=== PATIENT | female | born 1955 | race Caucasian/White ===

== ENCOUNTER 2024-09-09 07:44 | Outpatient (REF) | payer MEDICARE, SELFPAY ==
[2024-09-09 09:25] LABS: MANUAL DIFF FLAG NO
[2024-09-09 09:33] LABS: Basophils Percent Auto 0.8 % (0-2); Eosinophils Absolute Auto 0.1 X10*3/uL (0.0-0.4); Eosinophils Percent Auto 1.5 % (0-4); Hematocrit 44.8 % (37.0-47.0); Hemoglobin 15.2 g/dl (12.0-16.0); Imm Gran Abs Auto 0.01 X10*3/uL (0.00-0.03); Imm Gran Pct Auto 0.2 % (0.0-0.4); Lymphocytes Absolute Auto 1.8 X10*3/uL (1.2-4.9); Lymphocytes Percent Auto 34.6 % (20-40); Mean Corpuscular HGB Conc 33.9 g/dl (31.0-35.0); Mean Corpuscular Volume 91.2 fL (80.0-98.0); Mean Platelet Volume 10.5 fL (9.4-12.3); Monocytes Absolute Auto 0.3 X10*3/uL (0.1-1.2); Neutrophils Absolute Auto 2.9 x10*3/uL (2.0-8.3); Neutrophils Percent Auto 56.9 % (45-73); Platelet Count 199 X10*3/uL (160-400); Red Blood Count 4.91 X10*6/uL (4.20-5.50); Red Cell Distribution Width 12.8 % (11.0-16.0); White Blood Count 5.2 X10*3/uL (4.8-10.8)
[2024-09-09 09:38] LABS: Appearance Urine Clear; Color Urine Yellow; Glucose Urine UA Negative (Negative); Leukocyte Esterase Urine Negative (Negative); Nitrite Urine Negative (Negative); Specific Gravity - Urine 1.025 (1.005-1.025); Urine Blood Negative (Negative); Urine Ketones Negative (Negative); Urine Protein Negative (Neg-Trace)
[2024-09-09 09:42] LABS: Estimated Average Glucose 108 mg/dL; Hemoglobin A1C 141.0899 umol/L; Hemoglobin A1c % 5.4 % (<6.0); Total Hemoglobin (HGBA1C) 3965.1775 umol/L
[2024-09-09 10:07] LABS: Alanine Aminotransferase 16 U/L (0-31); Albumin Level 4.5 g/dL (3.5-5.0); Alkaline Phosphatase 120 U/L (39-117); Anion Gap 11 (12-20); Aspartate Amino Transferase 23 U/L (5-31); Bilirubin Total 0.5 mg/dL (0.0-1.0); Blood Urea Nitrogen 19 mg/dL (9-16); Calcium 9.9 mg/dL (8.4-10.2); Carbon Dioxide 29 mmol/L (22-29); Chloride 106 mmol/L (96-108); Cholesterol 179 mg/dL (<200); Estimated Glomerular Filt Rate > 60; Glucose Random 99 mg/dL (60-115); HDL Cholesterol 57 mg/dL (>40); LDL Cholesterol Calculated 109 mg/dL (<100); Potassium 3.7 mmol/L (3.3-5.1); Sodium 142 mmol/L (135-145); Triglycerides 66 mg/dL (<150)
[2024-09-09 10:24] LABS: TSH reflex Free T4 1.35 uIU/mL (0.32-4.0)
[2024-09-09 10:40] LABS: Folate 11.3 ng/mL (> or = 4.0); Vitamin B12 216 pg/mL (200-900)
[2024-09-14 16:19] LABS: Vitamin D 25-OH, D2 <4 ng/mL; Vitamin D 25-OH, D3 52 ng/mL; Vitamin D 25-OH, Total 52 ng/mL (30-100)
== END 2024-09-09 07:45 | disposition home or self-care (01) ==
LOC: HO.LAB 07:44
DX: R19.7 Diarrhea, unspecified (principal); I10 Essential (primary) hypertension; G40.909 Epilepsy, unspecified, not intractable, without status epilepticus; F41.9 Anxiety disorder, unspecified; R35.89 Other polyuria; Z23 Encounter for immunization; Z79.899 Other long term (current) drug therapy; Z00.00 Encounter for general adult medical examination without abnormal findings
CPT/HCPCS: 36415; 80053; 80061; 81003; 82306; 82607; 82746; 83036; 84443; 85025; 90471; 90656; 96127; 99202

== ENCOUNTER 2024-09-09 07:44 | Outpatient (AMB) | payer MEDICARE, SELFPAY ==
[2024-09-09 08:02] VITALS: BP 122/70; PULSE 60; O2SAT 99; BMI 25.3
--- NOTE | 2024-09-09 08:02 | MHC.PC.OV ---
Vital Signs 09/09/24 08:02 Height 5 ft 1 in Weight 134 lb 0.2 oz BMI 25.3 BP 122/70 Blood Pressure Location Lt brachial Position Sitting Pulse 60 Pulse Source Pulse Oximeter Pulse Oximetry (%) 99 Oxygen Delivery Method Room Air Intake Visit Reasons: Neurology Referral Panel Wirer Required: No Allergies Iodinated Contrast Media Allergy (Mild, Verified 09/09/24 08:21) Shakiness nitrofurantoin [From Macrodantin] Allergy (Mild, Verified 09/09/24 08:21) Nausea and Vomiting sulfa Allergy (Mild, Uncoded 09/09/24 08:21) Hives Medication List - Last Reconciled 09/09/24 by Isabella Collazo PA-C amlodipine 5 mg PO DAILY calcium carbonate-vitamin D3 600 mg-12.5 mcg (500 unit) (Calcium 600 with Vitamin D3) caps PO levetiracetam 500 mg PO BID lisinopril 20 mg PO DAILY Tobacco use date assessed: 09/09/24 Fall risk assessment: No Falls in past year Dental Screening Dental Screen Date: 09/09/24 Did you have a dental visit in the last 12 months?: Yes Did you have a dental problem in the last 6 months where you did not have access to dental care?: No Was dental information given to patient?: No HPI Neurology Referral HPI Details 68-year-old female coming to the office for the 1st time. Patient states she has a long history of neurological issues. She has a history of a brain aneurysm and underwent repair during the surgery patient had TIA with seizure activity. She had increased intracranial pressure after the surgery required a medically induced coma with craniotomy. Since the surgery patient has been having intermittent seizures and has been stabilized on medication for several years. Last week she had a breakthrough seizure and does not currently have a neurologist. She is dealing with increased family stress and anxiety and she believes what caused her most recent seizure. Previously her last seizure was January 2021. She is up-to-date on her colonoscopy 2021, bone density 2022 and mammogram completed earlier this year and was advised to have additional imaging due to dense breast tissue and family history. Previously she was on levothyroxine for hypothyroidism but has not been on this medication for several months. She also mentions she has been having chronic diarrhea primarily in the mornings that began after cholecystectomy 2022. [facility] Medical History (Updated 09/09/24 @ 09:13 by Isabella Collazo PA-C) TIA (transient ischemic attack) Brain aneurysm Surgical History (Updated 09/09/24 @ 08:20 by Isabella Collazo PA-C) S/P cholecystectomy H/O craniotomy S/P LASIK surgery of both eyes Hx of tubal ligation S/P removal of ovarian cyst H/O lithotripsy Family History (Updated 09/09/24 @ 08:28 by Isabella Collazo PA-C) Mother Breast cancer Sister Breast cancer Social History Housing: House Patient Tobacco Use Status: Never used Tobacco service: No Current occupational status: retired Cognitive needs: No Hearing needs: No Vision needs: No Questionnaire PHQ-9 Over the last 2 weeks, how often have you been bothered by any of the following problems? 1. Little interest or pleasure in doing things: not at all 2. Feeling down, depressed, or hopeless: not at all 3. Trouble falling or staying asleep, or sleeping too much: not at all 4. Feeling tired or having little energy: not at all 5. Poor appetite or overeating: not at all 6. Feeling bad about yourself - or that you are a failure or have let yourself or your family down: not at all 7. Trouble concentrating on things, such as reading the newspaper or watching television: not at all 8. Moving or speaking so slowly that other people could have noticed. Or the opposite - being so fidgety or restless that you have been moving around a lot more than usual: not at all 9. Thoughts that you would be better off or of hurting yourself in some way: not at all Total score: 0 Depression Screening Interpretation: Negative Depression Screening Done: Yes 34613 - PHQ-9 Billing: Yes Source: Developed by Drs. Jose Lechuga, Alicia Moncada, Jorge Crawford and colleagues, with an educational elda from [employer]. Thrive Questionnaire Date Thrive assessed: 09/09/24 I am a: Patient What is your living situation today?: I have a steady place to live Within the past 12 months, did the food you bought not last and you didn't have the money to get more?: Never true Within the past 12 months, did you worry whether your food would run out before you got money to buy more?: Never true Do you have trouble paying for medicines?: No Do you have trouble getting transportation to medical appointments?: No Do you have trouble paying your heating and electricity bill?: No Do you have trouble taking care of your child, family member or friend?: No Do you have trouble with day-to-day activities such as bathing, preparing meals, shopping, managing finances, etc.?: No Are you currently unemployed and looking for a job?: No Are you interested in more education?: No Please select the resources that you would like help with: None Currently or been in a relationship where the following occur: No concerns reported THRIVE Score: 0 AUDIT C Alcohol Use Questionnaire (AUDIT-C) 1. How often do you have a drink containing alcohol?: Never 2. How many drinks containing alcohol do you have on a typical day when you are drinking?: 1 or 2 (0) 3. How often do you have six or more drinks on one occasion?: Never Total Score: 0 ISRAEL-7 AMB Questionnaire ISRAEL-7 Date ISRAEL - 7 assessed: 09/09/24 Feeling nervous, anxious, or on edge: 0 = Not at all Not being able to stop or control worryin = Several days Worrying too much about different things: 1 = Several days Trouble relaxin = Not at all Being so restless that it is hard to sit still: 0 = Not at all Becoming easily annoyed or irritable: 0 = Not at all Feeling afraid as if something awful might happen: 0 = Not at all Total ISRAEL-7 score (0-4 normal; 5-9 mild; 10-14 moderate; 15-21 severe): 2 Source: Developed by Drs. Jose Lechuga, Alicia Moncada, Jorge Crawford and colleagues, with an educational elda from [employer]. ISRAEL-7 Assessment Billing ISRAEL-7 Assessment Tool: ISRAEL-7 Assessment 46023 Review of Systems Const Denies body aches, Denies fatigue, Denies fever(s), Denies frequent falls, Denies headache(s) and Denies weakness Eyes Reports no additional complaints and Denies change in vision ENT Details: neck tenderness Denies dysphagia, Denies dizziness, Denies facial pain, Denies headache(s), Denies nasal congestion and Denies odynophagia Card Denies chest pain, Denies syncope, Denies irregular heart rhythm, Denies leg edema, Denies lightheadedness and Denies dyspnea Resp Denies cough and Denies dyspnea GI Denies constipation, Denies dysphagia, Denies dyspepsia, Denies diarrhea, Denies nausea, Denies odynophagia and Denies vomiting Denies urinary frequency, Denies dysuria, Denies urinary hesitancy and Denies urinary urgency Musc Denies back pain and Denies myalgias Skin/Breast Reports system reviewed and no additional complaints, except as documented Neuro Denies dizziness, Denies syncope, Denies frequent falls, Denies headache(s) and Denies weakness Psych Reports no additional complaints Endo Denies fatigue Physical exam (Primary Care) Vital Signs: Last Vital Signs Pulse 60 09/09/24 08:02 BP 122/70 09/09/24 08:02 Pulse Ox 99 09/09/24 08:02 Oxygen Delivery Method Room Air 09/09/24 08:02 BMI result Body Mass Index 25.3 Tobacco/Smoking Status: Tobacco use Status Tobacco use date assessed 09/09/24 09/09/24 08:04 Patient Tobacco Use Status Never used Tobacco 09/09/24 08:13 PHQ-9: PHQ-9 Score PHQ-9: Total score 0 09/09/24 08:45 Depression Screening Interpretation: Negative Thrive Assessment: Date of Thrive Assessment Date Thrive assessed 09/09/24 09/09/24 08:13 Currently or been in a relationship where the following occur: No concerns reported Const General: cooperative, healthy appearing, comfortable and no acute distress Orientation/consciousness: patient oriented x3 HENMT Head: Yes normocephalic Ears: hearing grossly normal bilaterally General nose exam: Normal external nose present Eyes General: appearance normal, both eyes and all related structures Conjunctivae: conjunctivae normal Neck Neck: Yes full ROM and Yes no lymphadenopathy Resp Effort & Inspection: normal respiratory effort Auscultation: clear to auscultation bilaterally, no crackles, no rales, no rhonchi and no wheezes Cardio Rate: regular rate Rhythm: regular rhythm Skin General skin exam: no rashes or lesions noted Neuro General: patient oriented x3 Gait exam (Neuro): Normal gait present Extrem General: Yes normal to inspection, Yes full ROM and No edema Psych Affect: normal affect Attitude: cooperative Insight: Good insight present (Psych) Judgement: Good judgement present (Psych) Office Procedures Flu Questionnaire Does the patient have a severe egg allergy?: No Does the patient have severe life threatening allergies?: No Does the patient have a fever or illness today?: No Has the patient ever had Guillain-[place] Syndrome?: No Has the patient ever had any past reaction to a flu shot?: No Immunizations Fluarix Triv [id number] (PF) 45 mcg (15 mcg x 3)/0.5 mL IM syringe Performing Provider: Isabella Collazo PA-C [facility] Administered by: LAKEISHA Gomez on 09/09/24 08:45 Dose Route Admin Location Dispensed Lot Number Expiration Date NDC Sed Special Education Teacher 0.5 mL IM Left Deltoid 0.5 mL [id number] 04/25/25 [id number] [employer] VIS Given Date VIS Provided VIS Publication Date 09/09/24 Single Vaccine 21 Eligibility Eligibility Date Funding Source Not [facility] Eligible 09/09/24 Private Coding Level of Care Code New Pt Level 4 (48492) Diagnoses Breast cancer screening Z12.39 Diarrhea R19.7 Hypertension I10 Seizure disorder G40.909 Anxiety F41.9 Additional Codes ISRAEL-7 Assessment Billing - ISRAEL-7 Assessment Tool: ISRAEL-7 Assessment 30275 ([id number]) PHQ-9 - 91245 - PHQ-9 Billing: Yes ([id number]) Assessment & Plan Assessment & Plan (1) Breast cancer screening: Code(s): Z12.39 - Encounter for other screening for malignant neoplasm of breast Category: Medical Plan: Patient had breast cancer screening done with mammogram and was recommended to have additional testing due to dense breast tissue and strong family history of breast cancer. Patient declines MRI at this time and we will order for bilateral ultrasound. (2) Diarrhea: Code(s): R19.7 - Diarrhea, unspecified Category: Medical Plan: Patient has chronic diarrhea status post cholecystectomy advised patient to use cholestyramine powder and discussed how to take this medication. We will follow up in 1 month for re-evaluation. (3) Hypertension: Code(s): I10 - Essential (primary) hypertension Category: Medical Plan: Continue on current blood pressure medication. Avoid salt intake and encourage healthy diet and regular exercise. (4) Seizure disorder: Code(s): G40.909 - Epilepsy, unspecified, not intractable, without status epilepticus Category: Medical Plan: Patient currently on Keppra b.i.d. has been doing well on this medication for several years. Last week states she had a witnessed seizure and did not go to the emergency room at that time but was evaluated by television repair teacher. Referral placed for Neurology due to breakthrough seizure. (5) Anxiety: Code(s): F41.9 - Anxiety disorder, unspecified Category: Medical Plan: Increased anxiety and due to family stress. Declines medication or counseling referral at this time Plan This note was constructed using voice recognition software. While every effort has been made to ensure accuracy and photonics engineering technician, still areas may have been included sometimes these areas may affect the content or meeting of the given symptoms. Total time spent caring for the patient today was 30 minutes. This includes time spent before the visit reviewing the chart, time spent during the visit, and time spent after the visit and documentation. Orders: Orders US breast LT complete Today Z12.39 - Encounter for other screening for malignant neoplasm of breast US breast RT complete Today Z12.39 - Encounter for other screening for malignant neoplasm of breast Comprehensive Met. Panel Today Z00.00 - Encounter for general adult medical examination without abnormal findings TSH reflex Free T4 Today Z00.00 - Encounter for general adult medical examination without abnormal findings Hemoglobin A1c Today Z00.00 - Encounter for general adult medical examination without abnormal findings Vitamin D 25-OH (D2 and D3) Today Z00.00 - Encounter for general adult medical examination without abnormal findings Influenza [id number] Immunization Today Z23 - Encounter for immunization Complete Blood Count Auto Diff Today Z00.00 - Encounter for general adult medical examination without abnormal findings Lipid Panel Today Z00.00 - Encounter for general adult medical examination without abnormal findings Vitamin B12 and Folate Today Z00.00 - Encounter for general adult medical examination without abnormal findings UA CC w/rflx Micro + Cult Today R35.89 - Other polyuria Referrals Neurology Referral G40.909 - Epilepsy, unspecified, not intractable, without status epilepticus Medications: New cholestyramine (with sugar) 4 gram no meds 1 hr before/4-6 hr after dose. 4 grams PO BID 368.76 grams 1RF
== END 2024-09-09 08:55 | disposition home or self-care (01) ==
DX: Z12.39 Encounter for other screening for malignant neoplasm of breast (principal); R19.7 Diarrhea, unspecified; I10 Essential (primary) hypertension; G40.909 Epilepsy, unspecified, not intractable, without status epilepticus; F41.9 Anxiety disorder, unspecified; Z23 Encounter for immunization

== ENCOUNTER 2024-10-13 10:13 | Outpatient (AMB) | payer MEDICARE, SELFPAY ==
--- NOTE | 2024-10-13 10:18 | MHC.PC.OV ---
Vital Signs 10/13/24 10:19 Height 5 ft 1 in Weight 132 lb BMI 24.9 BP 116/70 Blood Pressure Location Lt brachial Position Sitting Pulse 55 Pulse Source Pulse Oximeter Pulse Oximetry (%) 97 Oxygen Delivery Method Room Air Intake Visit Reasons: Annual Exam Intake Note: Patient here for an annual physical exam Telephone Operator Receptionist Required: No Accompanied by: Self / Same As Patient Allergies Iodinated Contrast Media Allergy (Mild, Verified 10/13/24 10:34) Shakiness nitrofurantoin [From Macrodantin] Allergy (Mild, Verified 10/13/24 10:34) Nausea and Vomiting sulfa Allergy (Mild, Uncoded 10/13/24 10:34) Hives Medication List - Last Reconciled 10/13/24 by Isabella Collazo PA-C amlodipine 5 mg PO DAILY calcium carbonate-vitamin D3 600 mg-12.5 mcg (500 unit) (Calcium with Vit D3) caps PO cholestyramine-aspartame 4 gram (Cholestyramine Light) 4 grams PO QIDACHS levetiracetam 500 mg PO BID lisinopril 20 mg PO DAILY Tobacco use date assessed: 09/09/24 Fall risk assessment: No Falls in past year Last assessed Fall Risk: 10/13/24 Dental Screening Dental Screen Date: 09/09/24 HPI Annual Exam HPI Details 68-year-old female with past medical history of seizure disorder, hypertension, anxiety last seen August 2024 coming in for annual exam. Patient has an appointment in November with [facility] to follow up on her seizure disorder. She denies any seizure-like activity, headaches or other concerns. She has been using the cholestyramine daily for her diarrhea and states since using this medication she no longer has diarrhea. She does mentioned that her right shoulder has been tender especially at night while in bed. Her last colonoscopy was done in 2021 advised to follow up in 5 years. Her breast ultrasound is scheduled for next month and her last bone density was completed November 2022. [facility] Medical History TIA (transient ischemic attack) Brain aneurysm Surgical History S/P cholecystectomy H/O craniotomy S/P LASIK surgery of both eyes Hx of tubal ligation S/P removal of ovarian cyst H/O lithotripsy Family History Mother Breast cancer Sister Breast cancer Social History Housing: House Patient Tobacco Use Status: Never used Tobacco e-Cigarette/Vaping Use: Never Used Second Hand Smoke Exposure: No service: No Current occupational status: retired Cognitive needs: No Hearing needs: No Vision needs: No Questionnaire Thrive Questionnaire Date Thrive assessed: 09/09/24 I am a: Patient What is your living situation today?: I have a steady place to live Within the past 12 months, did the food you bought not last and you didn't have the money to get more?: Never true Within the past 12 months, did you worry whether your food would run out before you got money to buy more?: Never true Do you have trouble paying for medicines?: No Do you have trouble getting transportation to medical appointments?: No Do you have trouble paying your heating and electricity bill?: No Do you have trouble taking care of your child, family member or friend?: No Do you have trouble with day-to-day activities such as bathing, preparing meals, shopping, managing finances, etc.?: No Are you currently unemployed and looking for a job?: No Are you interested in more education?: No Please select the resources that you would like help with: None Currently or been in a relationship where the following occur: No concerns reported THRIVE Score: 0 ISRAEL-7 AMB Questionnaire ISRAEL-7 Date ISRAEL - 7 assessed: 09/09/24 Source: Developed by Drs. Jose Lechuga, Alicia Moncada, Jorge Crawford and colleagues, with an educational elda from [employer]. Review of Systems Const Denies body aches, Denies fatigue, Denies fever(s), Denies frequent falls, Denies headache(s) and Denies weakness Eyes Reports no additional complaints and Denies change in vision ENT Denies dysphagia, Denies dizziness, Denies facial pain, Denies headache(s), Denies nasal congestion and Denies odynophagia Card Denies chest pain, Denies syncope, Denies irregular heart rhythm, Denies leg edema, Denies lightheadedness and Denies dyspnea Resp Denies cough and Denies dyspnea GI Denies abdominal pain, Denies constipation, Denies dysphagia, Denies dyspepsia, Denies diarrhea, Denies nausea, Denies odynophagia and Denies vomiting Denies urinary frequency, Denies dysuria, Denies urinary hesitancy and Denies urinary urgency Musc Details: right shoulder pain, neck pain and stiffness Denies back pain and Denies myalgias Skin/Breast Reports system reviewed and no additional complaints, except as documented Neuro Denies dizziness, Denies syncope, Denies frequent falls, Denies headache(s) and Denies weakness Psych Reports no additional complaints Endo Denies fatigue Physical exam (Primary Care) Vital Signs: Last Vital Signs Pulse 55 10/13/24 10:19 BP 116/70 10/13/24 10:19 Pulse Ox 97 10/13/24 10:19 Oxygen Delivery Method Room Air 10/13/24 10:19 BMI result Body Mass Index 24.9 Tobacco/Smoking Status: Tobacco use Status Tobacco use date assessed 09/09/24 10/13/24 10:20 Patient Tobacco Use Status Never used Tobacco 10/13/24 10:20 e-Cigarette/Vaping Use Never Used 10/13/24 10:23 Thrive Assessment: Date of Thrive Assessment Date Thrive assessed 09/09/24 10/13/24 10:20 Currently or been in a relationship where the following occur: No concerns reported Const General: cooperative, healthy appearing, comfortable and no acute distress Orientation/consciousness: patient oriented x3 HENMT Head: Yes normocephalic Ears: hearing grossly normal bilaterally, external ears normal, TM's normal bilaterally and EAC's normal General nose exam: Normal external nose present Face and sinus: Yes normal facial exam and Yes sinuses nontender Mouth: Normal oral and palatal mucosa present and tongue normal Throat: Yes posterior oropharynx normal Eyes General: appearance normal, both eyes and all related structures Conjunctivae: conjunctivae normal Pupils: Equal, round and reactive pupils present EOM: EOMs intact bilaterally and No Nystagmus present Neck Other: Pain to palpation over right trapezius. Limited range of motion of the neck Neck: Yes normal visual inspection and Yes no lymphadenopathy Chest Chest palpation & inspection: normal inspection of the chest Resp Effort & Inspection: normal respiratory effort Auscultation: clear to auscultation bilaterally, no crackles, no rales, no rhonchi, no wheezes and breath sounds present Cardio Rate: regular rate Rhythm: regular rhythm Peripheral pulses: radial pulses present and dorsalis pedis present GI Inspection: Yes normal to inspection and No Abdominal wall edema Palpation (GI): Soft to palpation, not firm and nontender Auscultation: normal bowel sounds Rectal Exam - Female: deferred General: Yes no CVA tenderness Back/Spine/Pelvis Back: no CVA tenderness Skin General skin exam: no rashes or lesions noted Neuro General: patient oriented x3 Cranial nerves: Yes Equal, round and reactive pupils present, Yes Midline tongue present, Yes Ability to bilaterally elevate shoulders present and No Nystagmus present Gait exam (Neuro): Normal gait present Extrem Other: No pain to palpation over right shoulder, full range of motion, strength sensation and pulses intact in bilateral upper extremities. Patient does has very mild tenderness to palpation over right biceps General: Yes normal to inspection, Yes full ROM, No no pedal edema and No edema Psych Speech and movement: Normal speech and movement present Affect: normal affect Insight: Good insight present (Psych) Judgement: Good judgement present (Psych) Immunizations tetanus-diphtheria toxoids-Td 2 Lf unit-2 Lf unit/0.5 mL IM suspension Performing Provider: Isabella Collazo PA-C [place] Administered by: LAKEISHA Mata on 10/13/24 11:05 Dose Route Admin Location Dispensed Lot Number Expiration Date [facility] Facility Specialist 0.5 mL IM Left Deltoid 0.5 mL [id number] 12/06/24 [address]-8 [employer] VIS Given Date VIS Provided VIS Publication Date 10/13/24 Single Vaccine 21 Eligibility Eligibility Date Funding Source Not [facility] Eligible 10/13/24 State funds Coding Level of Care Code Est Pt Level 3 (93154) Est Pt Prev Care >65y(33053) Diagnoses Anxiety F41.9 Breast cancer screening Z12.39 Diarrhea R19.7 Hypertension I10 Seizure disorder G40.909 Annual physical exam Z00.00 Neck pain M54.2 Right shoulder pain M25.511 Assessment & Plan Assessment & Plan (1) Anxiety: Code(s): F41.9 - Anxiety disorder, unspecified Category: Medical Plan: Has a history of anxiety not currently on medication. Declines counseling (2) Breast cancer screening: Code(s): Z12.39 - Encounter for other screening for malignant neoplasm of breast Category: Medical Plan: Ultrasound ordered for breast cancer screening as patient declines mammogram or MRI. (3) Diarrhea: Code(s): R19.7 - Diarrhea, unspecified Category: Medical Plan: Currently using cholestyramine for diarrhea status post cholecystectomy. States since using this medication has no longer had diarrhea. (4) Hypertension: Code(s): I10 - Essential (primary) hypertension Category: Medical Plan: Continue on current blood pressure medication. Avoid salt intake and encourage healthy diet and regular exercise. (5) Seizure disorder: Code(s): G40.909 - Epilepsy, unspecified, not intractable, without status epilepticus Category: Medical Plan: Referral was placed to [facility] at last visit patient currently on Keppra 500 mg b.i.d.. Patient did have breakthrough seizure which she attributes to increased stress. Has neurology visit in November. (6) Annual physical exam: Code(s): Z00.00 - Encounter for general adult medical examination without abnormal findings Category: Medical Plan: Patient is up-to-date on her colonoscopy and Pap smears. She has breast cancer screening scheduled for next month and also referred to bone density today. Tetanus shot up-to-date today and had flu shot at last visit. Blood work is up-to-date we will continue to monitor thyroid testing. (7) Neck pain: Code(s): M54.2 - Cervicalgia Category: Medical Plan: On exam patient having tenderness to palpation over right side of the neck. States she continues to have stiffness despite using gentle stretching. We will refer to physical therapy at this time continue to use Tylenol and ibuprofen as needed. (8) Right shoulder pain: Code(s): M25.511 - Pain in right shoulder Category: Medical Plan: Patient completed right shoulder pain primarily in bed discussed this may be due to the way that she is sleeping as the shoulder pain typically resolves throughout the day. Appears to be muscular in nature. Referral placed to physical therapy. Plan This note was constructed using voice recognition software. While every effort has been made to ensure accuracy and security public safety officer, still areas may have been included sometimes these areas may affect the content or meeting of the given symptoms. Total time spent caring for the patient today was 30 minutes. This includes time spent before the visit reviewing the chart, time spent during the visit, and time spent after the visit and documentation. Orders: Orders PT Evaluation and Treatment Today M25.511 - Pain in right shoulder, M54.2 - Cervicalgia Free T4 (Free Thyroxine) 3 Months Z00.00 - Encounter for general adult medical examination without abnormal findings XR DEXA axial skeleton Today Z78.0 - Asymptomatic menopausal state Td State Immunization Today Z23 - Encounter for immunization TSH reflex Free T4 3 Months Z00.00 - Encounter for general adult medical examination without abnormal findings Referrals Dermatology Referral L65.9 - Nonscarring hair loss, unspecified
[2024-10-13 10:19] VITALS: BP 116/70; PULSE 55; O2SAT 97; BMI 24.9
== END 2024-10-13 11:09 | disposition home or self-care (01) ==
DX: Z00.00 Encounter for general adult medical examination without abnormal findings (principal); M54.2 Cervicalgia; G40.909 Epilepsy, unspecified, not intractable, without status epilepticus; F41.9 Anxiety disorder, unspecified; Z12.39 Encounter for other screening for malignant neoplasm of breast; R19.7 Diarrhea, unspecified; I10 Essential (primary) hypertension; M25.511 Pain in right shoulder; Z23 Encounter for immunization

== ENCOUNTER → 2024-10-13 10:13 | Outpatient (BNVA) | payer MEDICARE, SELFPAY | DX: Z00.00 Encounter for general adult medical examination without abnormal findings (principal); Z23 Encounter for immunization; F41.9 Anxiety disorder, unspecified; R19.7 Diarrhea, unspecified; I10 Essential (primary) hypertension; G40.909 Epilepsy, unspecified, not intractable, without status epilepticus; M54.2 Cervicalgia; M25.511 Pain in right shoulder | CPT/HCPCS: 90471; 90714; 99212; 99397 ==

== ENCOUNTER 2024-11-01 10:30 | Outpatient (REF) | payer MEDICARE, SELFPAY ==
--- NOTE | ~2024-11-01 | US_ITS ---
EXAMINATION: US SCREENING ULTRASOUND BREAST, BILATERAL CLINICAL INFORMATION: Dense breasts on mammography. Screening ultrasound. COMPARISON: Mammogram August 26, 2024. TECHNIQUE: Ultrasound is performed using grayscale imaging and color Doppler. Imaging is performed to include the four quadrants and retroareolar region and bilateral axilla. Both breasts are imaged. FINDINGS: Right breast: There is no suspicious finding by ultrasound. There is no solid mass or focal architectural abnormality. Left breast: There is no suspicious finding by ultrasound. There is no solid mass or focal architectural abnormality. US/US breast BI complete IMPRESSION: No suspicious findings on screening breast ultrasound. ASSESSMENT: BI-RADS 1 - Negative RECOMMENDATION: 1 year F/U This patient's information was entered into a reminder system with a target due date for their next mammogram. Electronically signed by: Kady Clarke DO 11/01/2024 11:51 AM ISHMAEL
== END 2024-11-01 10:31 | disposition home or self-care (01) ==
LOC: HO.MAMMO 10:30
DX: R92.333 Mammographic heterogeneous density, bilateral breasts (principal)
CPT/HCPCS: 76641

== ENCOUNTER → 2024-11-01 11:00 | Outpatient (BNV) | payer MEDICARE, SELFPAY | PROVIDERS: Visit Provider Internal Medicine | DX: R92.30 Dense breasts, unspecified (principal) | CPT/HCPCS: 76641 ==

== ENCOUNTER 2024-12-02 09:41 | Emergency (ER) | payer MEDICARE, SELFPAY ==
--- NOTE | ~2024-12-02 | XR_ITS ---
EXAMINATION: XR ELBOW, LEFT CLINICAL INFORMATION: pain s/p fall COMPARISON: None available. TECHNIQUE: AP, lateral, and oblique views of the left elbow. FINDINGS: The bones and soft tissues are normal. No fracture or joint effusion. Alignment is anatomic. Joint spaces are maintained. XR/XR elbow LT min 3V IMPRESSION: Normal left elbow. Electronically signed by: Mike Lopez MD 12/02/2024 10:55 AM EST
--- NOTE | ~2024-12-02 | XR_ITS ---
EXAMINATION: XR FOREARM, LEFT CLINICAL INFORMATION: fall COMPARISON: None available. TECHNIQUE: AP and lateral views of the left forearm were obtained. FINDINGS: Nondisplaced fracture distal radius. Rest of the radius and the entire ulna appears intact. There is moderate soft tissue swelling along the distal radius and wrist. XR/XR forearm LT 2V IMPRESSION: Nondisplaced fracture distal radius. Moderate distal forearm and wrist soft tissue swelling. Electronically signed by: Mike Lopez MD 12/02/2024 10:56 AM [facility]AVER
--- NOTE | ~2024-12-02 | XR_ITS ---
EXAMINATION: XR WRIST, LEFT CLINICAL INFORMATION: fall , pain COMPARISON: None available. TECHNIQUE: PA, lateral, oblique, and scaphoid views of the left wrist. FINDINGS: Nondisplaced mildly comminuted intra-articular distal radial fracture. No articular step-off. The ulna is intact. The carpal bones are intact and normally aligned. The metacarpals are intact. DRUJ is not widened. Negative ulnar variance. There is mild soft tissue swelling around the wrist. XR/XR wrist LT min 3V IMPRESSION: Nondisplaced, comminuted, intra-articular distal radial fracture. Electronically signed by: Noble Hernandez MD 12/02/2024 10:55 AM ISHMAEL
[2024-12-02 09:48] VITALS: BP 147/71; PULSE 69; RESP 18; TEMP 36.6; BMI 25.6
--- NOTE | 2024-12-02 10:04 | ED_ITS ---
HPI - Extremity Problem General Chief complaint: Extremity Injury, Upper Stated complaint: fall l arm inj Time Seen by Provider: 12/02/24 09:52 Source: patient and RN notes reviewed Mode of arrival: ambulatory Limitations: no limitations History of Present Illness ED Provider: Alpa Arreaga PA-C HPI Narrative: This is a 69-year-old female, with a history of bran aneurysm with repair and s eizure disorder on Kera, who presents emergency department with complaints of left arm pain status post mechanical fall which occurred just prior to arrival. Patient reports that she accidentally slipped and fell on ice while taking a walk this morning. She tried to catch her fall, landing on her outstretched left arm. She denies hitting her head or LOC. She was right-hand dominant. Denies taking any medications prior to arrival. Denies any other complaints or concerns at this time. MD Complaint: extremity pain Onset (ago): minute(s) Pain Consistency: constant Location: left and upper extremity Quality: aching Radiation: none Relieving factors: nothing Exacerbating factors: range of motion Associated symptoms: denies other symptoms Related Data Home Medications ?Medication ?Instructions ?Recorded ?Confirmed calcium 600 mg (as cap PO 09/09/24 10/13/24 carbonate)-vitamin D3 12.5 mcg (500 unit) capsule (Calcium with Vit D3) levetiracetam 500 mg tablet 500 mg PO BID 09/09/24 10/13/24 Previous Rx's ?Medication ?Instructions ?Recorded cholestyramine-aspartame 4 gram 4 g PO QIDACHS #239.4 grams 10/07/24 oral powder (Cholestyramine Light) amlodipine 5 mg tablet 5 mg PO DAILY #90 tabs 11/30/24 lisinopril 20 mg tablet 20 mg PO DAILY #90 tabs 11/30/24 acetaminophen 500 mg tablet 500 mg PO Q6H PRN pain #30 tabs 12/02/24 (Tylenol Extra Strength) Allergies Allergy/AdvReac Type Severity Reaction Status Date / Time Iodinated Contrast Media Allergy Mild Shakiness Verified 12/02/24 09:49 nitrofurantoin Allergy Mild Nausea and Verified 12/02/24 09:49 [From Macrodantin] Vomiting sulfa Allergy Mild Hives Uncoded 12/02/24 09:49 Review of Systems Review of Systems: Yes all other systems are reviewed and are negative Constitutional: Constitutional: Reports as per [facility] Past Medical History Medical History TIA (transient ischemic attack) Brain aneurysm Surgical History S/P cholecystectomy H/O craniotomy S/P LASIK surgery of both eyes Hx of tubal ligation S/P removal of ovarian cyst H/O lithotripsy Family History Family History Mother Breast cancer Sister Breast cancer Social History Social History Housing: House Patient Tobacco Use Status: Never used Tobacco Smoked in Last 30 Days: No e-Cigarette/Vaping Use: Never Used Second Hand Smoke Exposure: No Use of substances other than those prescribed or required for medical reasons: No Advance Directives: No Advance Directives Information Provided: Yes Do you have a plan to hurt others: No Plan service: No Current occupational status: retired Cognitive needs: No Hearing needs: No Vision needs: No Physical Exam Vital Signs: Vital Signs: Last Vital Signs Temp 97.9 F 12/02/24 09:48 Pulse 69 12/02/24 09:48 Resp 18 12/02/24 09:48 BP 147/71 H 12/02/24 09:48 BMI result Body Mass Index 25.6 Const: General: cooperative, comfortable and no acute distress Orientation/consciousness: patient oriented x3 Limitations: no limitations HEENT: Head: Yes normal to inspection, Yes normocephalic and Yes atraumatic Ears: hearing grossly normal bilaterally General nose exam: Normal external nose present Face and sinus: Yes normal facial exam Mouth: Normal oral and palatal mucosa present, oropharynx normal and moist mucous membranes Throat: Yes posterior oropharynx normal Eyes: General: appearance normal, both eyes and all related structures Eyelids: Yes eyelids normal Conjunctivae: conjunctivae normal Sclerae: sclerae normal Pupils: Equal, round and reactive pupils present EOM: EOMs intact bilaterally Neck: Other: No midline C-spine tenderness on examination. Neck: Yes normal visual inspection, Yes full ROM and Yes no lymphadenopathy Lymphatic: no lymphadenopathy noted Chest: Chest palpation & inspection: normal inspection of the chest Resp: Effort & Inspection: normal respiratory effort and able to speak in complete sentences Auscultation: clear to auscultation bilaterally, no crackles, no rales, no rhonchi and no wheezes Cardio: Rate: regular rate Rhythm: regular rhythm Heart sounds: S1 normal heart sound present and S2 normal heart sound present GI: Inspection: Yes normal to inspection Skin: General skin exam: no rashes or lesions noted Trauma: no lacerations or abrasions Wounds: no wounds Neuro: General: patient oriented x3 and moves all extremities Cranial nerves: Yes Equal, round and reactive pupils present Extrem: Other: Left arm, with no open wounds or lacerations. Left distal radius and ulna with moderate edema, and tenderness palpation. Strong radial pulse, capillary refill less than 2 seconds. Hand is nontender. Elbows nontender. Shoulder is nontender. General: Yes normal to inspection Right upper extremity: normal to inspection Left upper extremity: normal to inspection Right lower extremity: normal to inspection Left lower extremity: normal to inspection Course Reevaluation(s) Reevaluation #1: X-ray returns revealing a nondisplaced comminuted intra-articular distal radial fracture. Discussed findings with patient. She was placed in a sugar-tong and sling was applied. She will follow-up with the internal communications specialist. Given strict return precautions. Patient stable for discharge. Time: 11:35 Medications Administered Discontinued Medications Generic Name Dose Route Start Last Admin Trade Name Freq PRN Reason Stop Dose Admin Acetaminophen 650 mg 12/02/24 10:05 12/02/24 10:14 Acetaminophen 325 Mg Tablet PO 12/02/24 10:06 650 mg ONCE ONE Administration Medical Decision Making Medical Decision Making [facility] Narrative: This is a 69-year-old female who presents emergency department with concerns for left arm and wrist pain status post mechanical fall which occurred just prior to arrival. On arrival, vital signs within normal limits. She is speaking full sentences under no acute distress. She is not anticoagulated. No head strike or LOC. She landed with her left arm outstretched, and has had pain since. She was strong radial pulse. Differential diagnoses include fracture, contusion, sprain, strain. Will medicate with Tylenol. X-rays were obtained to rule out any bony abnormality. Differential Diagnosis Differential Diagnoses: The differential diagnosis associated with the presentation includes See above Admission/Observation Consideration of admission/observation: Escalation of care including admission/observation considered Lab Data MDM Lab Attestation statement: I reviewed the patient's lab results. Radiology Impression Discussion of test interpretation with radiology: I have reviewed the radiologist's reading. External Record Review External record reviewed: Inpatient record, Office record, Outpatient record, Prior outpatient labs, Prior outpatient radiology, Primary care record and Outside ED record Procedures Orthopedic Splinting/Casting Injury #1: Side: left Upper Extremity Injury Location: wrist Upper Extremity Immobilizer: sling/shoulder immobilizer and sugar tong splint Discharge Plan Discharge Clinical Impression: Distal radius fracture, left Patient Disposition: Home, Self-Care Instructions: Wrist Fracture in Adults (ED) Additional Instructions: You were seen in the emergency department after a slip and fall. You have a fracture to your left wrist. We placed you in a splint. Please keep this on until you follow-up with the internal communications specialist. Call today to make an appointment. Keep your arm elevated at rest as this can help decrease inflammation in your wrist in your fingers. You may take Tylenol as needed for pain. If any new or worsening symptoms occur including but not limited to feeling as though the splint is too tight, increased swelling, decreased sensation in your fingers, please seek emergent care. Prescriptions: New acetaminophen [Tylenol Extra Strength] 500 mg tablet 500 mg PO Q6H PRN (Reason: pain) Qty: 30 0RF No Action Cholestyramine Light 4 gram powder 4 g PO QIDACHS Qty: 239.4 1RF Rx Instructions: no meds 1 hr before/4-6 hr after dose lisinopril 20 mg tablet 20 mg PO DAILY Qty: 90 0RF amlodipine 5 mg tablet 5 mg PO DAILY Qty: 90 0RF levetiracetam 500 mg tablet 500 mg PO BID calcium carbonate-vitamin D3 [Calcium 600 with Vitamin D3] 600 mg-12.5 mcg (500 unit) capsule PO Referrals: [facility] [place] Orth[facility] Surgeons [Provider Group] Print Language: Occitan
[2024-12-02] MEDS: Acetaminophen 325 MG TABLET 650 MG PO (10:14)
[2024-12-02 11:45] VITALS: BP 124/69; PULSE 61; RESP 16; O2SAT 98
[2024-12-02 11:46] VITALS: BP 124/69; PULSE 61; RESP 16; TEMP -17.7; TEMP 0; O2SAT 98
== END 2024-12-02 11:47 | disposition home or self-care (01) ==
PROVIDERS: Emergency Provider Emergency Medicine
DX: S52.502A Unspecified fracture of the lower end of left radius, initial encounter for closed fracture (principal); M79.632 Pain in left forearm; M25.532 Pain in left wrist; W00.0XXA Fall on same level due to ice and snow, initial encounter; Y93.01 Activity, walking, marching and hiking; Y92.89 Other specified places as the place of occurrence of the external cause; Y99.8 Other external cause status
CPT/HCPCS: 29125; 73080; 73090; 73110; 99283; 99284

== ENCOUNTER → 2024-12-02 10:28 | Outpatient (BNV) | payer MEDICARE, SELFPAY | PROVIDERS: Emergency Provider Emergency Medicine; Visit Provider Radiology Diagnostic Radiology | DX: M25.522 Pain in left elbow (principal); S52.572A Other intraarticular fracture of lower end of left radius, initial encounter for closed fracture | CPT/HCPCS: 73080; 73090; 73110 ==

== ENCOUNTER 2024-12-07 09:25 | Outpatient (REF) | payer MEDICARE, SELFPAY ==
--- NOTE | ~2024-12-07 | XR_ITS ---
CLINICAL HISTORY: M25.532 - Pain in left wrist 3 views left wrist Comparison: 12/02/2024 Findings: No dislocations. No significant arthritic change No radiopaque foreign body Impression: Soft tissue swelling. There is a healing nondisplaced mildly impacted fracture of the distal radial metaphysis in satisfactory alignment. This document has been electronically signed by: Cristóbal Astudillo MD on 12/07/2024 15:33:07
== END 2024-12-07 09:26 | disposition home or self-care (01) ==
LOC: HO.HOSX 09:25
PROVIDERS: Visit Provider Orthopaedic Surgery
DX: S52.502A Unspecified fracture of the lower end of left radius, initial encounter for closed fracture (principal); G40.909 Epilepsy, unspecified, not intractable, without status epilepticus; W00.0XXA Fall on same level due to ice and snow, initial encounter; Y93.9 Activity, unspecified; Y92.9 Unspecified place or not applicable; Y99.9 Unspecified external cause status
CPT/HCPCS: 25600; 73110; 99202

== ENCOUNTER → 2024-12-07 09:29 | Outpatient (BNV) | payer MEDICARE, SELFPAY | PROVIDERS: Visit Provider Radiology Diagnostic Radiology | DX: S52.592D Other fractures of lower end of left radius, subsequent encounter for closed fracture with routine healing (principal) | CPT/HCPCS: 73110 ==

== ENCOUNTER 2024-12-07 12:57 | Outpatient (AMB) | payer MEDICARE, SELFPAY ==
--- NOTE | 2024-12-07 13:03 | MHC.OFFVIS ---
Vital Signs 12/07/24 13:07 Height 5 ft Weight 131 lb BMI 25.6 Intake Visit Reasons: FC- ED f/u Left distal radius fx DOI 12/02/24 Intake Note: Zari 69 yr old right hand dominant female presents today for a new patient visit for her left hand. States on 12/02/24 she accidentally slipped and fell on ice while taking a morning walk. She tried to catch her fall, landing on her outstretched left arm/hand. Seen in ED same day where she was told she has a distal radius fracture, splinted and referred to orthopedics. Currently state she has soreness, swelling and bruising. Hx of 3 brain surgery. Allergies Iodinated Contrast Media Allergy (Mild, Verified 12/07/24 13:14) Shakiness nitrofurantoin [From Macrodantin] Allergy (Mild, Verified 12/07/24 13:14) Nausea and Vomiting sulfa Allergy (Mild, Uncoded 12/07/24 13:14) Hives HPI HPI FC- ED f/u Left distal radius fx DOI 12/02/24: Details: Zari is a 69 year old right hand dominant woman who presents for a left distal radius fracture, S/P slip & fall on ice, DOI: 12/02/24. She was seen in the ED and splinted. She says she is doing fine. She has some soreness, bruising, and swelling, but says this is tolerable. She has a Hx of a brain aneurysm & 3 previous surgeries. She also has a Seizure disorder. [facility], [facility] Medical History TIA (transient ischemic attack) Brain aneurysm Surgical History S/P cholecystectomy H/O craniotomy S/P LASIK surgery of both eyes Hx of tubal ligation S/P removal of ovarian cyst H/O lithotripsy Family History Mother Breast cancer Sister Breast cancer Social History (Updated 12/07/24 @ 13:16 by [facility]arwal [facility] Housing: House Patient Tobacco Use Status: Never used Tobacco e-Cigarette/Vaping Use: Never Used Second Hand Smoke Exposure: No service: No Current occupational status: retired 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 Cognitive needs: No Hearing needs: No Vision needs: No Review of Systems Const All systems reviewed & are unremarkable except as noted in HPI and below Physical Exam Vital Signs: BMI result Body Mass Index 25.6 Const General: cooperative, healthy appearing and no acute distress Orientation/consciousness: patient oriented x3 HEENT Head: Yes normocephalic and Yes atraumatic Eyes EOM: EOMs intact bilaterally Resp Effort & Inspection: normal respiratory effort and able to speak in complete sentences Cardio Jugular venous distension: no JVD Skin General skin exam: turgor normal Rashes: no rashes Neuro General: patient oriented x3 Extrem Other: Evaluation of Left Upper Extremity: The patient is alert, oriented, and in no acute distress Neuro: Median, Ulnar, Radial nerves motor and sensory intact and sensation is normal to the tips of all digits Vascular: Cap refill brisk ROM: She can make a weak fist and extend all her digits Skin: No lacerations or abrasions or evidence of open fracture General: No Erythema or evidence of infection. Resolving ecchymosis & swelling about the wrist Most tender over the fracture site at the distal radius No tenderness over the elbow No tenderness or pain with proximal forearm squeeze Radiographs: 3 views of the left wrist were taken and viewed by me today in clinic. They show a distal radius transverse metaphyseal fracture, with satisfactory fracture alignment Psych Appearance: grossly normal Affect: normal affect Attitude: cooperative Office Procedures AMB Fracture Care Details: Fracture care distal radius fracture 72696 Fracture Billing Code: Fracture Billing Code Assessment & Plan Assessment & Plan (1) Distal radius fracture, left: Code(s): S52.502A - Unspecified fracture of the lower end of left radius, initial encounter for closed fracture Category: Medical (2) Seizure disorder: Code(s): G40.909 - Epilepsy, unspecified, not intractable, without status epilepticus Category: Medical Plan Assessment & Plan: 1. Left distal radius metaphyseal fracture, transverse From a fall on ice, DOI: 12/02/24 I educated her about this condition I discussed operative and non-operative treatment options I think we can manage this conservatively, and she is in agreement She was placed in a short arm cast, to be worn for he next 3 weeks I discussed activity modifications, she is to lift nothing heavier than a cellphone for the next 3 weeks She will perform gentle finger ROM exercises at home She will follow up in 3 weeks, with X-rays, 3V L wrist, OOP Scribed for Kaylynn Leory MD by Jacoby Shukla, director biomedical engineering, on 12/07/24 at 1:30 PM, EST. Orders: Orders XR wrist LT min 3V Today M25.532 - Pain in left wrist Coding Level of Care Code New Pt Level 4 (68004) Diagnoses Distal radius fracture, left S52.502A Seizure disorder G40.909 CPT Codes Fracture Care - Fracture Billing Code: Fracture Billing Code ([id number])
[2024-12-07 13:07] VITALS: BMI 25.6
== END 2024-12-07 14:06 | disposition home or self-care (01) ==
PROVIDERS: Visit Provider Orthopaedic Surgery
DX: S52.502A Unspecified fracture of the lower end of left radius, initial encounter for closed fracture (principal); W00.0XXA Fall on same level due to ice and snow, initial encounter; G40.909 Epilepsy, unspecified, not intractable, without status epilepticus
CPT/HCPCS: 25600; 99204

== ENCOUNTER 2024-12-28 10:53 | Outpatient (AMB) | payer MEDICARE, SELFPAY ==
--- NOTE | 2024-12-28 11:22 | MHC.OFFVIS ---
Vital Signs 12/28/24 11:23 Height 5 ft Weight 131 lb BMI 25.6 Intake Visit Reasons: OV Left distal radius fx DOI 12/02/24 Intake Note: Zari 69 year old right hand dominant female presents for a left distal radius fracture, S/P slip & fall on ice, DOI: 12/02/24. Cast removed and xrays updated. States since cast removed she has a little pain and is afraid to move/use her hand. Allergies Iodinated Contrast Media Allergy (Mild, Verified 12/28/24 11:27) Shakiness nitrofurantoin [From Macrodantin] Allergy (Mild, Verified 12/28/24 11:27) Nausea and Vomiting sulfa Allergy (Mild, Uncoded 12/28/24 11:27) Hives HPI HPI OV Left distal radius fx DOI 12/02/24: Details: Zari is a 69 year old right hand dominant woman who presents for a left distal radius fracture, S/P slip & fall on ice, DOI: 12/02/24. She was seen in the ED and splinted. She says she is doing okay. She is somewhat afraid to move her hand/wrist since her cast was removed. She says she goes out for walks daily, and has been being extra careful to not have another fall. She has a Hx of a brain aneurysm & 3 previous surgeries. She also has a Seizure disorder. 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 Resolved ecchymosis & swelling about the wrist No tenderness over the fracture site DRUJ stable on exam Radiographs: 3 views of the left wrist were taken and viewed by me today in clinic. They show a distal radius transverse metaphyseal fracture, with satisfactory fracture alignment and good evidence of interval bony healing Assessment & Plan Assessment & Plan (1) Distal radius fracture, left: Code(s): S52.502A - Unspecified fracture of the lower end of left radius, initial encounter for closed fracture Category: Medical (2) Seizure disorder: Code(s): G40.909 - Epilepsy, unspecified, not intractable, without status epilepticus Category: Medical Plan Assessment & Plan: 1. Left distal radius metaphyseal fracture, transverse From a fall on ice, DOI: 12/02/24 Treated non operatively in a cast I educated her about this condition She appears to be healing well. I educated her about her injury. She was fitted for a velcro wrist splint, to be worn for the next 4 weeks with daily activities. She will remove this to shower & to work on ROM exercises. She will stop wearing this at night in 1 week, and in 2 weeks will stop wearing this during the day at home.She will continue to wear this when out of the house for the full 4 weeks. I discussed activity modifications, she is to work on finger & wrist ROM exercises, out of her splint. She is to begin to use her hand for lightweight activities, and slowly build to heavier activities over the next 4 weeks. She is to avoid any falls or impact activities at this time. Consider referral to OT hand therapy at her next appointment, depending on her ROM. She will follow up in 4 weeks for a ROM check, no X-rays unless she has a new injury. Scribed for Kaylynn Leroy MD by Jacoby Shukla medical director occupational health, on 12/28/24 at 11:45 AM, EST. Orders: Orders XR wrist LT min 3V Today M25.532 - Pain in left wrist Coding Level of Care Code Global (45544) Diagnoses Distal radius fracture, left S52.502A Seizure disorder G40.909
[2024-12-28 11:23] VITALS: BMI 25.6
== END 2024-12-28 11:48 | disposition home or self-care (01) ==
PROVIDERS: Visit Provider Orthopaedic Surgery
DX: S52.502A Unspecified fracture of the lower end of left radius, initial encounter for closed fracture (principal); G40.909 Epilepsy, unspecified, not intractable, without status epilepticus
CPT/HCPCS: 99024

== ENCOUNTER → 2024-12-28 10:54 | Outpatient (BNV) | payer MEDICARE, SELFPAY | PROVIDERS: Visit Provider Radiology Diagnostic Radiology | DX: S52.502D Unspecified fracture of the lower end of left radius, subsequent encounter for closed fracture with routine healing (principal) | CPT/HCPCS: 73110 ==

== ENCOUNTER 2024-12-28 14:02 | Outpatient (REF) | payer MEDICARE, SELFPAY ==
--- NOTE | ~2024-12-28 | XR_ITS ---
CLINICAL HISTORY: M25.532 - Pain in left wrist 3 view left wrist Comparison: CR/SR - XR WRIST LT MIN 3V - 12/07/24 10:05 EST Findings: Transverse fracture of the distal metaphysis of the radius. No significant displacement. Increased density at the fracture site and partial obscuration of the fracture line, compatible with a healing response. No significant arthritic change or erosions. No radiopaque foreign body. IMPRESSION: Nondisplaced healing fracture of the distal metaphysis of the radius. This document has been electronically signed by: Ilda Milian MD on 12/29/2024 14:29:44
== END 2024-12-28 14:03 | disposition home or self-care (01) ==
LOC: HO.HOSX 14:02
PROVIDERS: Visit Provider Orthopaedic Surgery
DX: M25.532 Pain in left wrist (principal); S52.502A Unspecified fracture of the lower end of left radius, initial encounter for closed fracture
CPT/HCPCS: 73110; 99212

== ENCOUNTER 2024-12-29 09:28 | Outpatient (REF) | payer MEDICARE, SELFPAY ==
--- NOTE | ~2024-12-29 | MM_ITS ---
EXAMINATION: DXA BONE DENSITY AXIAL HISTORY: Estrogen deficiency TECHNIQUE: [employer] Dual energy absorptiometry (DEXA) of the lumbar spine, total left hip, and femoral neck was performed. COMPARISON: There are no prior studies for comparison. FINDINGS: The bone mineral density of the lumbar spine is 0.771 with a T-score of -3.3, and a Z-score of -1.4. The bone mineral density of the left total hip is 0.798 with a T-score of -1.7, and a Z-score of 0.0. The bone mineral density of the left femoral neck is 0.827 with a T-score of -1.5, and a Z-score of 0.3. MM/XR DEXA axial skeleton IMPRESSION: Based on bone mineral density, and according to World Health Organization (WHO) criteria, the diagnosis is consistent with osteoporosis. All bone density values are in grams per centimeter squared (g/cm2). Statistically, 68% of repeat scans fall within 1 SD (+/- 0.010 g/cm2 for AP spine L1-L4) and 1 SD (+/- 0.012 g/cm2 for femur total) FRAX is a trademark of the [employer] Metabolic Bone Disease, a World Health Organization (WHO) Collaborating Center. Electronically signed by: Jose Sampson MD 12/31/2024 07:35 AM [facility]
== END 2024-12-29 09:29 | disposition home or self-care (01) ==
LOC: HO.MAMMO 09:28
DX: Z13.820 Encounter for screening for osteoporosis (principal); Z78.0 Asymptomatic menopausal state
CPT/HCPCS: 77080

== ENCOUNTER → 2024-12-29 10:00 | Outpatient (BNV) | payer MEDICARE, SELFPAY | PROVIDERS: Visit Provider Radiology Diagnostic Radiology | DX: E28.39 Other primary ovarian failure (principal) | CPT/HCPCS: 77080 ==

== ENCOUNTER 2025-01-14 08:53 | Outpatient (AMB) | payer MEDICARE, SELFPAY ==
--- NOTE | 2025-01-14 09:17 | MHC.PC.OV ---
Vital Signs 01/14/25 09:23 01/14/25 09:44 Height 5 ft Weight 133 lb 2 oz BMI 26.0 BP 122/68 Blood Pressure Location Lt brachial Position Sitting Pulse 95 65 Pulse Source Pulse Oximeter Pulse Oximeter Pulse Oximetry (%) 65 L 96 Oxygen Delivery Method Room Air Room Air Intake Visit Reasons: yeast infection under breast Intake Note: Patient is here to follow up on Yeast infection under breast. Airworthiness Inspector Required: No Home Management Supervisor: Not Required per policy Accompanied by: Self / Same As Patient Allergies Iodinated Contrast Media Allergy (Mild, Verified 01/14/25 09:40) Shakiness nitrofurantoin [From Macrodantin] Allergy (Mild, Verified 01/14/25 09:40) Nausea and Vomiting sulfa Allergy (Mild, Uncoded 01/14/25 09:40) Hives Medication List - Last Reconciled 01/14/25 by Isabella Collazo PA-C acetaminophen (Tylenol Extra Strength) 500 mg PO Q6H PRN amlodipine 5 mg PO DAILY calcium carbonate-vitamin D3 600 mg-12.5 mcg (500 unit) (Calcium with Vit D3) caps PO cholestyramine-aspartame 4 gram (Cholestyramine Light) 4 grams PO QIDACHS levetiracetam 500 mg PO BID lisinopril 20 mg PO DAILY Tobacco use date assessed: 01/14/25 Fall risk assessment: 1 Fall in past year Last assessed Fall Risk: 01/14/25 Dental Screening Dental Screen Date: 09/09/24 Did you have a dental visit in the last 12 months?: Yes Did you have a dental problem in the last 6 months where you did not have access to dental care?: No Was dental information given to patient?: Patient has dentist HPI yeast infection under breast HPI Details 69-year-old female with past medical history of seizure disorder, hypertension, anxiety last seen 09/2024 coming in for acute problem. In review of the notes, patient was seen by Neurology 01/11/2025 declined MRI, EEG or Keppra increase.?Recommending syncope workup considering a heart monitor and follow up in 6 months.?Patient was seen in [facility] ED 12/02/2024 after mechanical fall on ice found to have left distal radius fracture advised to follow up with Orthopedics. Patient was seen by Orthopedics most recently 12/28/2024 placed in velcro wrist splint for 4 weeks with a appointment to follow consider occupational therapy. The patient is a 69 year old female presenting with management of osteoporosis and rash under the breasts. The patient experienced a fall on ice recently, resulting in a wrist fracture. It did not require surgery, and the casting has been removed. Patient is doing well and has a follow up with Orthopedics in the next few weeks. Osteoporosis was confirmed with a T score of -3.3 in the lumbar spine and she will see endocrinology next month. Seizure history includes an episode in August, with no further occurrences; patient is on Keppra. Recurrent yeast infection under the breast due to lack of antifungal cream was noted. 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 1. Little interest or pleasure in doing things: not at all 2. Feeling down, depressed, or hopeless: not at all 3. Trouble falling or staying asleep, or sleeping too much: not at all 4. Feeling tired or having little energy: not at all 5. Poor appetite or overeating: not at all 6. Feeling bad about yourself - or that you are a failure or have let yourself or your family down: not at all 7. Trouble concentrating on things, such as reading the newspaper or watching television: not at all 8. Moving or speaking so slowly that other people could have noticed. Or the opposite - being so fidgety or restless that you have been moving around a lot more than usual: not at all 9. Thoughts that you would be better off or of hurting yourself in some way: not at all Total score: 0 Depression Screening Interpretation: Negative Depression Screening Done: Yes Source: Developed by Drs. Jose Lechuga, Alicia Moncada, Jorge Crawford and colleagues, with an educational elda from [employer]. Thrive Questionnaire Date Thrive assessed: 01/14/25 AUDIT C Alcohol Use Questionnaire (AUDIT-C) 1. How often do you have a drink containing alcohol?: Never Total Score: 0 ISRAEL-7 AMB Questionnaire ISRAEL-7 Date ISRAEL - 7 assessed: 01/14/25 Feeling nervous, anxious, or on edge: 0 = Not at all Not being able to stop or control worryin = Not at all Worrying too much about different things: 0 = Not at all Trouble relaxin = Not at all Being so restless that it is hard to sit still: 0 = Not at all Becoming easily annoyed or irritable: 0 = Not at all Feeling afraid as if something awful might happen: 0 = Not at all Total ISRAEL-7 score (0-4 normal; 5-9 mild; 10-14 moderate; 15-21 severe): 0 Source: Developed by Drs. Jose Lechuga, Alicia Moncada, Jorge Crawford and colleagues, with an educational elda from [employer]. Review of Systems Const Denies body aches, Denies chills, Denies fever(s), Denies headache(s) and Denies poor appetite Eyes Reports no additional complaints ENT Denies dysphagia, Denies dizziness, Denies headache(s) and Denies odynophagia Card Denies chest pain, Denies syncope, Denies edema, Denies irregular heart rhythm, Denies lightheadedness and Denies dyspnea Resp Denies cough and Denies dyspnea GI Denies abdominal pain, Denies constipation, Denies dysphagia, Denies diarrhea, Denies nausea, Denies odynophagia and Denies vomiting Reports no additional complaints Musc Reports no additional complaints and Denies abnormal gait Skin/Breast Reports system reviewed and no additional complaints, except as documented Neuro Denies abnormal gait, Denies dizziness, Denies syncope and Denies headache(s) Psych Reports no additional complaints Physical exam (Primary Care) Vital Signs: Last Vital Signs Pulse 95 01/14/25 09:23 BP 122/68 01/14/25 09:23 Pulse Ox 65 L 01/14/25 09:23 Oxygen Delivery Method Room Air 01/14/25 09:23 BMI result Body Mass Index 26.0 Tobacco/Smoking Status: Tobacco use Status Tobacco use date assessed 01/14/25 01/14/25 09:19 Patient Tobacco Use Status Never used Tobacco 01/14/25 09:19 e-Cigarette/Vaping Use Never Used 01/14/25 09:19 PHQ-9: PHQ-9 Score PHQ-9: Total score 0 01/14/25 09:29 Depression Screening Interpretation: Negative Thrive Assessment: Date of Thrive Assessment Date Thrive assessed 01/14/25 01/14/25 09:19 Const General: cooperative, healthy appearing, comfortable and no acute distress Orientation/consciousness: patient oriented x3 HENMT Head: Yes normocephalic Ears: hearing grossly normal bilaterally General nose exam: Normal external nose present Eyes General: appearance normal, both eyes and all related structures Conjunctivae: conjunctivae normal Neck Neck: Yes full ROM and Yes no lymphadenopathy Chest Other: Mild rash under bilateral breasts consistent with resolving yeast infection Resp Effort & Inspection: normal respiratory effort Auscultation: clear to auscultation bilaterally, no crackles, no rales, no rhonchi and no wheezes Cardio Rate: regular rate Rhythm: regular rhythm Skin General skin exam: no rashes or lesions noted Neuro General: patient oriented x3 Gait exam (Neuro): Normal gait present Extrem General: Yes normal to inspection, Yes full ROM and No edema Psych Affect: normal affect Attitude: cooperative Insight: Good insight present (Psych) Judgement: Good judgement present (Psych) Coding Level of Care Code Est Pt Level 3 (18193) Diagnoses Osteoporosis M81.0 Distal radius fracture, left S52.502A Hypertension I10 Seizure disorder G40.909 Candidal intertrigo B37.2 Assessment & Plan Assessment & Plan (1) Osteoporosis: Code(s): M81.0 - Age-related osteoporosis without current pathological fracture Category: Medical Plan: Advised increase of calcium and vitamin-D intake and follow up with endocrinology. (2) Distal radius fracture, left: Code(s): S52.502A - Unspecified fracture of the lower end of left radius, initial encounter for closed fracture Category: Medical Plan: Continue to follow with orthopedics patient has been doing well with the [id number] exercises. (3) Hypertension: Code(s): I10 - Essential (primary) hypertension Category: Medical Plan: Continue on current blood pressure medication. Avoid salt intake and encourage healthy diet and regular exercise. (4) Seizure disorder: Code(s): G40.909 - Epilepsy, unspecified, not intractable, without status epilepticus Category: Medical Plan: Patient recently seen by Neurology declines EEG or MRI at this time. Has not had further seizure activity since her most recent seizure in August. She feels her most recent seizure August was more consistent with syncopal episode however patient declining syncope workup at this time. Continue to follow with Neurology and continue on Keppra. (5) Candidal intertrigo: Code(s): B37.2 - Candidiasis of skin and nail Category: Medical Plan: Patient having resolving yeast infection under bilateral breasts plan to use clotrimazole twice daily until resolution and nystatin powder as maintenance to prevent further infection. Plan This note was constructed using voice recognition software. While every effort has been made to ensure accuracy and podiatric medicine professor, still areas may have been included sometimes these areas may affect the content or meeting of the given symptoms. Total time spent caring for the patient today was 20 minutes. This includes time spent before the visit reviewing the chart, time spent during the visit, and time spent after the visit and documentation. Patient was informed and verbally consented to the use of an ambient scribe for clinic note documentation during this visit. Medications: New clotrimazole 1% 1 appl topical BID 30 grams 0RF nystatin 1 appl topical DAILY 30 grams 0RF Refilled amlodipine 5 mg PO DAILY 90 tabs 2RF I10 - Essential (primary) hypertension
[2025-01-14 09:23] VITALS: BP 122/68; PULSE 95; O2SAT 65; BMI 26.0
[2025-01-14 09:44] VITALS: PULSE 65; O2SAT 96
== END 2025-01-14 10:06 | disposition home or self-care (01) ==
LOC: HO.HMCH 08:54
DX: M81.0 Age-related osteoporosis without current pathological fracture (principal); S52.502A Unspecified fracture of the lower end of left radius, initial encounter for closed fracture; I10 Essential (primary) hypertension; G40.909 Epilepsy, unspecified, not intractable, without status epilepticus; B37.2 Candidiasis of skin and nail

== ENCOUNTER → 2025-01-14 08:53 | Outpatient (BNVA) | payer MEDICARE, SELFPAY | DX: M81.0 Age-related osteoporosis without current pathological fracture (principal); I10 Essential (primary) hypertension; G40.909 Epilepsy, unspecified, not intractable, without status epilepticus; B37.2 Candidiasis of skin and nail; S52.502D Unspecified fracture of the lower end of left radius, subsequent encounter for closed fracture with routine healing | CPT/HCPCS: 99212 ==

== ENCOUNTER 2025-01-25 10:03 | Outpatient (AMB) | payer MEDICARE, SELFPAY ==
--- NOTE | 2025-01-25 10:31 | MHC.OFFVIS ---
Vital Signs 01/25/25 10:34 Height 5 ft 1 in Weight 131 lb BMI 24.7 Handedness Right Intake Visit Reasons: OV Left distal radius fx DOI 12/02/24-ROM check Intake Note: Zari 69 year old right hand dominant female presents for a left distal radius fracture, S/P slip & fall on ice, DOI: 12/02/24. At her last visit she was fitted for a velcro wrist splint, to be worn for the next 4 weeks with daily activities and then gradually wean off of brace. Patient reports she is still having some pain with no certain movements. Allergies Iodinated Contrast Media Allergy (Mild, Verified 01/25/25 10:33) Shakiness nitrofurantoin [From Macrodantin] Allergy (Mild, Verified 01/25/25 10:33) Nausea and Vomiting sulfa Allergy (Mild, Uncoded 01/25/25 10:33) Hives HPI HPI OV Left distal radius fx DOI 12/02/24-ROM check: Details: Zari 69 year old right hand dominant female presents for a left distal radius fracture, S/P slip & fall on ice, DOI: 12/02/24. At her last visit she was fitted for a velcro wrist splint, to be worn for the next 4 weeks with daily activities and then gradually wean off of brace. Patient reports she is still having some pain with no certain movements. 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 Cognitive needs: No Hearing needs: No Vision needs: No Review of Systems Const All systems reviewed & are unremarkable except as noted in HPI and below Physical Exam Vital Signs: BMI result Body Mass Index 24.7 Extrem Other: Evaluation of Left Upper Extremity: The patient is alert, oriented, and in no acute distress Neuro: Median, Ulnar, Radial nerves motor and sensory intact Vascular: Cap refill brisk ROM: She can make a weak fist and extend all her digits She is somewhat anxious at being out of her cast Full pronation Supination ~90degrees Flexion ~60 degrees extension: ~60 degrees General: No Erythema or evidence of infection. Resolved ecchymosis & swelling about the wrist No tenderness over the fracture site DRUJ stable on exam Radiographs: 3 views of the left wrist were taken and viewed by me today in clinic. They show a distal radius transverse metaphyseal fracture, with satisfactory fracture alignment and good evidence of interval bony healing Assessment & Plan Assessment & Plan (1) Distal radius fracture, left: Code(s): S52.502A - Unspecified fracture of the lower end of left radius, initial encounter for closed fracture Category: Medical (2) Seizure disorder: Code(s): G40.909 - Epilepsy, unspecified, not intractable, without status epilepticus Category: Medical Plan Assessment & Plan: 1. Left distal radius metaphyseal fracture, transverse From a fall on ice, DOI: 12/02/24 Treated non operatively in a cast I educated her about this condition She appears to be healing well. I educated her about her injury. Patient was educated she should only wear the Velcro wrist splint at this time for high-risk activities, such as going to a concert or going out in bad weather patient is educated she can increase her weight limit to 5 lb over the next 2 weeks slowly build to heavier activities over the following 2 weeks She is to avoid any falls or impact activities at this time. Consider referral to OT hand therapy at her next appointment, depending on her ROM. She will follow up as needed with any acute concerns Scribed for Kaylynn Leroy MD by Jacoby Shukla medical massage therapist, on 12/28/24 at 11:45 AM, EST. Coding Level of Care Code Global (38967) Diagnoses Distal radius fracture, left S52.502A Seizure disorder G40.909
[2025-01-25 10:34] VITALS: BMI 24.7
== END 2025-01-25 10:52 | disposition home or self-care (01) ==
LOC: HO.HOS 10:04
DX: S52.502A Unspecified fracture of the lower end of left radius, initial encounter for closed fracture (principal); G40.909 Epilepsy, unspecified, not intractable, without status epilepticus
CPT/HCPCS: 99024

== ENCOUNTER → 2025-01-25 10:03 | Outpatient (BNVA) | payer MEDICARE, SELFPAY | DX: S52.502D Unspecified fracture of the lower end of left radius, subsequent encounter for closed fracture with routine healing (principal); G40.909 Epilepsy, unspecified, not intractable, without status epilepticus | CPT/HCPCS: 99212 ==

== ENCOUNTER 2025-01-31 09:44 | Outpatient (AMB) | payer MEDICARE, SELFPAY ==
--- NOTE | 2025-01-31 09:48 | A.OFFVIS_ITS ---
Vital Signs 01/31/25 09:52 Height 5 ft 1.17 in Weight 133 lb 13.129 oz BMI 25.1 BP 108/68 Blood Pressure Location Lt brachial Position Sitting Pulse 77 Pulse Source Pulse Oximeter Pulse Oximetry (%) 98 Oxygen Delivery Method Room Air Intake Visit Reasons: Age-related osteoporosis Intake Note: New patient internally referred by PCP for Osteoporosis. Communications Instructor Required: No Accompanied by: Self / Same As Patient Allergies Iodinated Contrast Media Allergy (Mild, Verified 01/31/25 09:53) Shakiness nitrofurantoin [From Macrodantin] Allergy (Mild, Verified 01/31/25 09:53) Nausea and Vomiting sulfa Allergy (Mild, Uncoded 01/31/25 09:53) Hives HPI Comments Details: The patient is a 69-year-old female presenting for evaluation and management of osteoporosis. She suffered a wrist fracture on December 02 after slipping on ice, leading to osteoporosis diagnosis via bone density testing. Past medical history includes a brain aneurysm treated surgically, a mini-stroke, and a history of seizure disorder along with kidney stones. Osteoporosis-related treatment has primarily included calcium and vitamin D supplements. She remains physically active, with a daily walking routine, and maintains a diet with adequate calcium intake. First diagnosed in just diagnosed . Not Received treatment in the past . history of pathologic fracture slipped on ice and broke wrist no ONJ. Has several servings of dietary calcium per day in the form of cheese , cereal . Takes Calcium supplement 600 mg daily in divided doses. Takes 500 IU of Vitamin D daily. Denies ever using PPI, anticoagulant,takes antiepileptic Keppra but no glucocorticoid medication. - Walking between 2 to 6 miles daily - No engagement in formal weight-bearing exercises, despite frequent walking which supports bone health Not Does weight bearing exercise but walks every day . 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 UTD on dental cleanings and sees dentist every 6 months. No planned upcoming dental work or extractions. No tababbo use or ETOH abuse DXA dated 12/29/24:FINDINGS: The bone mineral density of the lumbar spine is 0.771 with a T-score of -3.3, and a Z-score of -1.4. The bone mineral density of the left total hip is 0.798 with a T-score of -1.7, and a Z-score of 0.0. The bone mineral density of the left femoral neck is 0.827 with a T-score of -1.5, and a Z-score of 0.3. MM/XR DEXA axial skeleton IMPRESSION: Based on bone mineral density, and according to World Health Organization (WHO) criteria, the diagnosis is consistent with osteoporosis. 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 Absence of blue sclera. Absence of kyphosis. Thyroid gland is of nl size and weighs 15 gms. There are no thyroid nodules palpated. Lungs CTA. Heart S1 S2 Reg R/R Abdominal exam benign. Muscle strength 5/5 . Examination of spine reveals absence of tenderness on palpation Assessment & Plan Assessment & Plan (1) Osteoporosis: Code(s): M81.0 - Age-related osteoporosis without current pathological fracture Category: Medical Plan: 69 Year old white female with a history of osteoporosis and wrist fracture. She had partial secondary workup completed Plan is to complete the secondary workup by checking a phosphorus level, SPEP, urine immunofixation, 24 hour urine for calcium and creatinine. Will ensure 1200 mg of calcium and continued vitamin-D supplementation. Assuming secondary workup is negative would strongly consider the use of anabolic agent initially should she as Evenity , Tymlos or Georgio considering previous wrist fracture and very low bone density please place a very high risk for subsequent fracture 1. Osteoporosis: The osteoporosis diagnosis, highlighted by the patient's T- score and fracture history, prompts a discussion on pharmacologic treatment beyond calcium and vitamin D. Preference and justification are given for initiating osteoanabolic treatments like Evenity to effectively enhance bone mass before transitioning to an antiresorptive therapy for maintenance. Secondary causes of osteoporosis will be evaluated with appropriate lab tests and urine collection. I discussed with the patient the implications of her osteoporosis diagnosis, including preventive measures to forestall further fractures. Various therapeutic options were explored, focusing on the benefits of initiating treatment with anabolic agents to build bone density and transition to maintenance therapies thereafter. The possible side effects, administration processes, and necessary follow-up were explained comprehensively, emphasizing the importance of adhering to recommended dosages and lifestyle modifications. I advised procurement of lab tests and a urine collection to ensure no secondary causes of osteoporosis are present. The patient expressed understanding and agreement with the proposed plan, acknowledging potential insurance challenges with newer treatments like Evenity but expressed willingness to pursue optimal therapeutic pathways. - Continue taking your calcium and vitamin D supplements, targeting a total of 1200 mg of calcium daily. - Adhere to dietary recommendations to support overall bone health, including the consumption of calcium-rich foods. - Engage in safe walking routines, ensuring the environment is well-lit and free from trip hazards. - Obtain a 24-hour urine collection container and complete the test to assist in evaluating secondary causes of osteoporosis. - Follow up as scheduled in approximately three months, and be sure to complete the lab tests about a month before returning. - The patient had an opportunity to ask questions regarding treatment plan. The patient expressed understanding and agreement with the above treatment plan. Patient was informed and verbally consented to the use of an ambient scribe for clinic note documentation during this visit. Orders: Orders Creatinine, 24 Hr Group Today M81.0 - Age-related osteoporosis without current pathological fracture Calcium, 24 Hr Ur Today M81.0 - Age-related osteoporosis without current pathological fracture Phosphorus Today M81.0 - Age-related osteoporosis without current pathological fracture Immunofixation, Random Urine Today M81.0 - Age-related osteoporosis without current pathological fracture Protein Electrophoresis, Serum Today M81.0 - Age-related osteoporosis without current pathological fracture Coding Level of Care Code New Pt Level 4 (78311) Diagnoses Osteoporosis M81.0
[2025-01-31 09:52] VITALS: BP 108/68; PULSE 77; O2SAT 98; BMI 25.1
== END 2025-01-31 10:48 | disposition home or self-care (01) ==
LOC: HO.ENCR 09:45
PROVIDERS: Visit Provider Internal Medicine Endocrinology, Diabetes & Metabolism
DX: M81.0 Age-related osteoporosis without current pathological fracture (principal)
CPT/HCPCS: 99204

== ENCOUNTER → 2025-01-31 09:44 | Outpatient (BNVA) | payer MEDICARE, SELFPAY | PROVIDERS: Visit Provider Internal Medicine Endocrinology, Diabetes & Metabolism | DX: M81.0 Age-related osteoporosis without current pathological fracture (principal); Z86.73 Personal history of transient ischemic attack (TIA), and cerebral infarction without residual deficits | CPT/HCPCS: 99202 ==

== ENCOUNTER 2025-02-22 08:01 | Outpatient (REF) | payer MEDICARE, SELFPAY ==
[2025-02-22 11:03] LABS: Phosphorus 3.9 mg/dL (2.7-4.5)
[2025-02-22 12:05] LABS: Creatinine, mg/dL 89.86
[2025-02-22 13:35] LABS: Creatinine, 24Hr Urine 0.9 G/Day (1.0-2.0); Total Volume 24 Hour Urine 975 mL
[2025-02-24 18:39] LABS: Prot Elec - Albumin 4.2 g/dL (3.8-4.8); Prot Elec - Alpha1 0.2 g/dL (0.2-0.3); Prot Elec - Alpha2 0.7 g/dL (0.5-0.9); Prot Elec - Beta 1 0.4 g/dL (0.4-0.6); Prot Elec - Beta 2 0.3 g/dL (0.2-0.5); Prot Elec - Gamma 0.6 g/dL (0.8-1.7); Prot Elec - Total Protein 6.4 g/dL (6.1-8.1)
[2025-02-27 19:35] LABS: Calcium, 24 Hr Urine 149 mg/24 h; Calcium/Creatinine Ratio 178 mg/g creat (30-275); Creatinine 24Hr Urine 0.84 g/24 h (0.50-2.15)
== END 2025-02-22 08:02 | disposition home or self-care (01) ==
LOC: HO.10HDL 08:01
PROVIDERS: Visit Provider Internal Medicine Endocrinology, Diabetes & Metabolism
DX: M81.0 Age-related osteoporosis without current pathological fracture (principal)
CPT/HCPCS: 82340; 82570; 84100; 84165; 86335

== ENCOUNTER 2025-05-02 09:51 | Outpatient (AMB) | payer MEDICARE, MEDICAID, SELFPAY ==
--- NOTE | 2025-05-02 09:57 | MHC.OFFVIS ---
Vital Signs 05/02/25 10:00 Height 5 ft 1.17 in Weight 134 lb 11.239 oz BMI 25.3 BP 104/64 Blood Pressure Location Rt brachial Position Sitting Pulse 73 Pulse Source Pulse Oximeter Pulse Oximetry (%) 97 Oxygen Delivery Method Room Air Intake Visit Reasons: Osteoporosis Intake Note: Patient present today to follow up on Osteoporosis. Medical Reimbursement Manager Required: No Accompanied by: Self / Same As Patient Allergies Iodinated Contrast Media Allergy (Mild, Verified 05/02/25 10:01) Shakiness nitrofurantoin (From Macrodantin) Allergy (Mild, Verified 05/02/25 10:01) Nausea and Vomiting sulfa Allergy (Mild, Uncoded 05/02/25 10:01) Hives Medication List - Last Reconciled 05/02/25 by Jose Crespo MD acetaminophen (Tylenol Extra Strength) 500 mg PO Q6H PRN amlodipine 5 mg PO DAILY calcium carbonate-vitamin D3 600 mg-12.5 mcg (500 unit) (Calcium with Vit D3) caps PO cholestyramine-aspartame 4 gram (Cholestyramine Light) 4 grams PO QIDACHS clotrimazole 1% 1 appl topical BID levetiracetam 500 mg PO BID lisinopril 20 mg PO DAILY nystatin 1 appl topical DAILY HPI Comments Details: The patient is a 69-year-old female presenting for evaluation and management of osteoporosis. She suffered a wrist fracture on December 02 after slipping on ice, leading to osteoporosis diagnosis via bone density testing. Past medical history includes a brain aneurysm treated surgically, a mini-stroke, and a history of seizure disorder along with kidney stones. Osteoporosis-related treatment has primarily included calcium and vitamin D supplements. She remains physically active, with a daily walking routine, and maintains a diet with adequate calcium intake. First diagnosed in just diagnosed . Not Received treatment in the past . history of pathologic fracture slipped on ice and broke wrist no ONJ. Has several servings of dietary calcium per day in the form of cheese , cereal . Takes Calcium supplement 600 mg daily in divided doses. Takes 500 IU of Vitamin D daily. Denies ever using PPI, anticoagulant,takes antiepileptic Keppra but no glucocorticoid medication. - Walking between 2 to 6 miles daily - No engagement in formal weight-bearing exercises, despite frequent walking which supports bone health Not Does weight bearing exercise but walks every day . 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 UTD on dental cleanings and sees dentist every 6 months. No planned upcoming dental work or extractions. No tababbo use or ETOH abuse DXA dated 12/29/24:FINDINGS: The bone mineral density of the lumbar spine is 0.771 with a T-score of -3.3, and a Z-score of -1.4. The bone mineral density of the left total hip is 0.798 with a T-score of -1.7, and a Z-score of 0.0. The bone mineral density of the left femoral neck is 0.827 with a T-score of -1.5, and a Z-score of 0.3. MM/XR DEXA axial skeleton IMPRESSION: Based on bone mineral density, and according to World Health Organization (WHO) criteria, the diagnosis is consistent with osteoporosis. 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 secondary workup completed and was negative Plan is to consider treatment with anabolic agent considering history of wrist fracture and very low bone density placing patient at very high risk for subsequent fracture. Consideration can be given to Evenity or Tymlos or Forteo initially to be proceded by an anti resorptive agent. Otherwise, patient will continue with the calcium and vitamin-D supplementation The patient had an opportunity to ask questions regarding treatment plan. The patient expressed understanding and agreement with the above treatment plan. Patient was informed and verbally consented to the use of an ambient scribe for clinic note documentation during this visit. Medications: New romosozumab-aqqg (Evenity) 210 mg (2.34 mL) subcut .q mo 2.34 mL 11RF Coding Level of Care Code Est Pt Level 3 (63436) Diagnoses Osteoporosis M81.0
[2025-05-02 10:00] VITALS: BP 104/64; PULSE 73; O2SAT 97; BMI 25.3
== END 2025-05-02 10:54 | disposition home or self-care (01) ==
PROVIDERS: Visit Provider Internal Medicine Endocrinology, Diabetes & Metabolism
DX: M81.0 Age-related osteoporosis without current pathological fracture (principal)
CPT/HCPCS: 99213

== ENCOUNTER → 2025-05-02 09:51 | Outpatient (BNVA) | payer MEDICARE, SELFPAY | PROVIDERS: Visit Provider Internal Medicine Endocrinology, Diabetes & Metabolism | DX: M81.0 Age-related osteoporosis without current pathological fracture (principal) | CPT/HCPCS: 99212 ==

== ENCOUNTER 2025-09-05 09:23 | Outpatient (AMB) | payer MEDICARE, MEDICAID, SELFPAY ==
--- OUTSIDE RECORDS SUMMARY | 2025-05-07 04:00 | XMS_ITS ---
Author Organization [facility] Address [address] [place] [address] Care Team Providers Care Batter Mixer Helper Name Role Phone Migration, Provider Unavailable Unavailable REASON FOR VISIT [facility]MR[facility] Encounters Encounter Location Date Provider Diagnosis Migrated_Facility 0 0 05/07/2025 Provider Migration Plan Of Treatment No Information Progress Notes * Zari KING ADOB: (69 yo F)Acc No.[id number]:05/07/2025 Patient: Sindi Zari LEIGH :1955 A ge:69 Y S ex:Female Address:[address] [place] [id number] Subjective: * Chief Complaints: * E MR-Grant * * Date:
--- NOTE | 2025-09-05 09:29 | A.OFFVIS_ITS ---
Vital Signs 09/05/25 09:31 Height 5 ft 1.17 in BMI Reason not done Patient refused/unable BP 102/60 Blood Pressure Location Rt brachial Position Sitting Pulse 86 Pulse Source Pulse Oximeter Pulse Oximetry (%) 96 Oxygen Delivery Method Room Air Intake Visit Reasons: f/u osteoporosis Intake Note: Patient present today to follow up on Osteoporosis. Rubber Molder Required: No Accompanied by: Self / Same As Patient Allergies Iodinated Contrast Media Allergy (Mild, Verified 09/05/25 09:33) Shakiness nitrofurantoin (From Macrodantin) Allergy (Mild, Verified 09/05/25 09:33) Nausea and Vomiting sulfa Allergy (Mild, Uncoded 09/05/25 09:33) Hives Medication List - Last Reconciled 09/05/25 by Jose Crespo MD acetaminophen (Tylenol Extra Strength) 500 mg PO Q6H PRN amlodipine 5 mg PO DAILY calcium carbonate-vitamin D3 600 mg-12.5 mcg (500 unit) (Calcium with Vit D3) caps PO cholestyramine-aspartame 4 gram (Cholestyramine Light) 4 grams PO QIDACHS clotrimazole 1% 1 appl topical BID levetiracetam 500 mg PO BID lisinopril 20 mg PO DAILY nystatin 1 appl topical DAILY pen needle, diabetic (Comfort EZ Pen [place]) As directed to inject teriparatide daily teriparatide 20 mcg (0.08 mL) subcut DAILY HPI Comments Details: The patient is a 69-year-old female presenting for evaluation and management of osteoporosis. She suffered a wrist fracture on December 02 after slipping on ice, leading to osteoporosis diagnosis via bone density testing. Past medical history includes a brain aneurysm treated surgically, a mini-stroke, and a history of seizure disorder along with kidney stones. Osteoporosis-related treatment has primarily included calcium and vitamin D supplements. She remains physically active, with a daily walking routine, and maintains a diet with adequate calcium intake. First diagnosed in just diagnosed . Not Received treatment in the past . history of pathologic fracture slipped on ice and broke wrist no ONJ. Has several servings of dietary calcium per day in the form of cheese , cereal . Takes Calcium supplement 600 mg daily in divided doses. Takes 500 IU of Vitamin D daily. Denies ever using PPI, anticoagulant,takes antiepileptic Keppra but no glucocorticoid medication. - Walking between 2 to 6 miles daily - No engagement in formal weight-bearing exercises, despite frequent walking which supports bone health Not Does weight bearing exercise but walks every day . 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 UTD on dental cleanings and sees dentist every 6 months. No planned upcoming dental work or extractions. No tababbo use or ETOH abuse DXA dated 12/29/24:FINDINGS: The bone mineral density of the lumbar spine is 0.771 with a T-score of -3.3, and a Z-score of -1.4. The bone mineral density of the left total hip is 0.798 with a T-score of -1.7, and a Z-score of 0.0. The bone mineral density of the left femoral neck is 0.827 with a T-score of -1.5, and a Z-score of 0.3. MM/XR DEXA axial skeleton IMPRESSION: Based on bone mineral density, and according to World Health Organization (WHO) criteria, the diagnosis is consistent with osteoporosis. Labs: Secondary workup was negative Currently off teriparatide 20 mcg q.d. approved by insurance since 05/2025. Had been experiencing some fatigue so after stopping teriperatide The patient is a 69-year-old female presenting with osteoporosis management. The patient has a history of osteoporosis with a T-score of negative 3.3 at the spine, indicating a high risk for fractures. She previously experienced a wrist fracture, which raises concerns about potential future fractures, particularly of the hip or spine. The patient has a history of a transient ischemic attack (TIA) that occurred during brain surgery approximately 20 years ago. This history is considered when evaluating treatment options due to potential cardiovascular risks associated with certain osteoporosis medications. 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 secondary workup completed and was negative. The patient was on teriparatide but could not tolerate due to fatigue 1. Osteoporosis The patient has a significant risk of fractures due to a T-score of negative 3.3 at the spine. Previous use of teraparatide was discontinued due to excessive drowsiness. Alternative treatments such as Tymlos and Evenity were discussed, considering the patient's history of TIA. The plan includes attempting to obtain insurance approval for Evenity, given its different mechanism of action and potential for better tolerance. During the consultation, I discussed the patient's osteoporosis and the associated high risk of fractures due to a T-score of negative 3.3 at the spine. We reviewed the limitations of oral medications in increasing bone density and the potential benefits of injectable options like Tymlos and Evenity. Given the patient's history of TIA, we considered the cardiovascular risks associated with these treatments. I explained the insurance challenges with obtaining approval for Evenity and the strategy to appeal based on the patient's intolerance to teraparatide. We also discussed the importance of preventing fractures and the potential consequences of untreated osteoporosis. - Discontinue teraparatide due to side effects. - Follow up in four months to reassess treatment options and progress. - Avoid activities that increase the risk of falls or fractures. The patient had an opportunity to ask questions regarding treatment plan. The patient expressed understanding and agreement with the above treatment plan. Patient was informed and verbally consented to the use of an ambient scribe for clinic note documentation during this visit. Medications: New romosozumab-aqqg (Evenity) 210 mg (2.34 mL) subcut QMONTH 2.34 mL 11RF Discontinued teriparatide Discontinued Reason: Doctor's Order 20 mcg (0.08 mL) subcut DAILY 2.24 mL 11RF Coding Level of Care Code Est Pt Level 3 (46944) Diagnoses Osteoporosis M81.0
[2025-09-05 09:31] VITALS: BP 102/60; PULSE 86; O2SAT 96
--- OUTSIDE RECORDS SUMMARY | 2025-09-05 10:19 | XMS_ITS | Patient Health Record ---
Author Organization [facility] Address [address] [address] Care Team Providers Care Telemarketing Supervisor Name Role Phone Byron Grigsby Primary Care Provider Nella Quezada MD, Gulshan Unavailable [phone] Hanh KHAN, Cbferalfa Unavailable Unavailanh e Allergies Allergen (clinical drug ingredient) Drug/Non Drug Allergy documented on EMR Reaction Allergy Type Onset Date Status Substance with sulfonamide structure and antibacterial mechanism of action (substance) Sulfa (Sulfonamide Antibiotics) (uncoded) Unknown Allergy Active Reason For Referral No Information Medications Medication SIG (Take, Route, Frequency, Duration) Notes Start Date End Date Status Pantoprazole Sodium 40mg 1 tab by mouth daily prior to breakfast Active Colestipol HCl 1 GM Tablet 1 tablet Oral ly Once a day; Duration: 30 days 09/10/2023 Active Vitamin D3 Active levETIRAcetam 500 MG Tablet 1 tablet Ora lly every 12 hrs Active Calcium + D3 Active Levothyroxine Sodium 25 MCG Tablet Oral Active Immunizations Vaccine Route Administration Date Status Comme nts Covid-19 Moderna 100 mcg/0.5 mL dose Unknown 09/03/2021 Administered Influenza vaccine, high dose seasonal Unknown 09/12/2021 Administered Social History Tobacco Use: Social History Observation Description Date Details (start date - stop date) Never Smoker NA - NA Social History Drugs/Alcohol(Archived) Social Info Question Answer Notes Alcohol Screen (Audit-C) Did you have a drink containing alcohol in the past year? No Points 0 Interpretation Negative Tobacco Use: Social Info Question Answer Notes Tobacco Use/Smoking (Archived) Are you a? nonsmoker Additional Findings: Tobacco Non-User Current no n-smoker Additional Details Category Social Info Options Details Migrated Social History Migrated Social History Alcohol: Less than 7 per wee k , Number of Children : 0 , NumberOfPreviousMarriages : 0 , Tobacco History : Never Smoked Problems Problem Type SNOMED Code ICD Code Onset Dates Problem Status W/U Status Risk Notes Problem History of polyp of colon (situation) (907953246) Personal history of colonic polyps (Z86.010) Active confirmed Problem Change in bowel habit (28596349) Change in bowel habits (R19.4) Active confirmed Problem Liver function tests abnormal (274774839) Abnormal liver function tests (R79.89) Active confirmed LFTS in ER 04/30 were normal. including AST/ALT and alk phos. she has a hx of recent abx use for UTI Problem Diarrhea (67719665) Diarrhea (R19.7) Active confirmed Problem Constipation (80926724) Constipation (K59.00) Active confirmed controlled on prn colace Problem Cholelithiasis (045293211) Cholelithiases (K80.20) Active confirmed asymptomatic, suspect lfts were unrelated although transient biliary obstruction is a possibility. however she was asymptomatic at the time lfts were checked. Problem High blood pressure (36409866) High Blood Pressure (I10) 017 Active confirmed Problem Liver enzymes abnormal (316169663) Liver enzymes abnormal (790.5) 019 Active confirmed --APPEND--AL0 01--Liver enzymes abnormal Problem Benign neoplasm of colon (71395794) Polyp-colon (211.3) 019 Active confirmed --APPEND--AL0 01--Polyp-col on Problem Screening for malignant neoplasm of colon (565960490) Screening-colon cancer screening (V76.51) 017 Active confirmed --APPEND--AL0 01--Screening -colon cancer screening Plan Of Treatment Future Test Test Name Order Date Abdominal X-Ray: flat and upright 2022 Insurance Providers Payer Name Payer Address Payer Phone Subscriber Number Group Number Insured Name Patient Relationship to Insured Coverage Start Date Coverage End Date [facility] [address] [address] [place] [address] [id number] Zari Smith Self - patient is the insured Medical (General) History Medical History History ICD Code Problems: brain surgery x 3 Seizures Stoke/TIA gallstones kidney stone Surgical History Surgery Date(Month/Year) Tubal Ligation colonoscopy 12/14/2015 renal stent Gall Bladder removal 04/2023 Hospitalization History Reason Date(Month/Year) Gall Bladder removal 04/2023
== END 2025-09-05 09:57 | disposition home or self-care (01) ==
LOC: HO.ENCR 09:24
PROVIDERS: Visit Provider Internal Medicine Endocrinology, Diabetes & Metabolism
DX: M81.0 Age-related osteoporosis without current pathological fracture (principal)
CPT/HCPCS: 99213

== ENCOUNTER → 2025-09-05 09:23 | Outpatient (BNVA) | payer MEDICARE, MEDICAID, SELFPAY | PROVIDERS: Visit Provider Internal Medicine Endocrinology, Diabetes & Metabolism | DX: M81.0 Age-related osteoporosis without current pathological fracture (principal) | CPT/HCPCS: 99212 ==

== ENCOUNTER 2025-10-06 13:36 | Outpatient (AMB) | payer MEDICARE, MEDICAID, SELFPAY ==
--- OUTSIDE RECORDS SUMMARY | 2025-05-07 04:00 | XMS_ITS ---
Author Organization [facility] Address [address] [facility] [address] [place] [address] Care Team Providers Care Manager Of Organizational Development Name Role Phone Migration, Provider Unavailable Unavailable REASON FOR VISIT [facility]MR-[facility] Encounters Encounter Location Date Provider Diagnosis Migrated_Facility 0 0 05/07/2025 Provider Migration Plan Of Treatment No Information Progress Notes * Zari KING ADOB: (69 yo F)Acc No.[id number]:05/07/2025 Patient: Sindi Zari LEIGH :1955 A ge:69 Y S ex:Female Address:[address] [place] [address] Subjective: * Chief Complaints: * E MR-Grant * * Date:
--- OUTSIDE RECORDS SUMMARY | 2025-05-08 04:00 | XMS_ITS ---
Author Organization [facility] Address [address] [facility] [address] [place] [address] Care Team Providers Care Correspondent Name Role Phone Migration, Provider Unavailable Unavailable REASON FOR VISIT EMR-[facility] Encounters Encounter Location Date Provider Diagnosis Migrated_Facility 0 0 05/08/2025 Provider Migration Plan Of Treatment No Information Progress Notes * Zari KING ADOB: (69 yo F)Acc No.[id number]:05/08/2025 Patient: Sindi Zair LEIGH :1955 A ge:69 Y S ex:Female Address:[address] [place] [address] Subjective: * Chief Complaints: * E MR-Grant * * Date:
--- NOTE | 2025-10-06 14:29 | AM.OFFVISNUR ---
Intake Visit Reasons: Evenity #1 Allergies Iodinated Contrast Media Allergy (Mild, Verified 09/05/25 09:33) Shakiness nitrofurantoin (From Macrodantin) Allergy (Mild, Verified 09/05/25 09:33) Nausea and Vomiting sulfa Allergy (Mild, Uncoded 09/05/25 09:33) Hives Office Meds romosozumab-aqqg 210 mg/2.34 mL(105 mg/1.17 mL x2)subcutaneous syringe Performing Provider: Jose Crespo MD Performing Location: [facility] Administered by: Consuelo Sanders RN on 10/06/25 14:03 Dose Route Admin Location Dispensed Lot Number Expiration Date NDC Medicare Interviewer 210 mg subcut bilateral upper arms 2.34 mL [id number] 02/24/28 49372-385-37 [employer] Total Dispensed Waste 2.34 mL 0 % Comments: Discussed that this medication is given every 4 weeks for 1 year. Advised that the Evenity is two separate injections that we give in the back of the arm if we are medically able. Advised that given this is her first injection we will have her stay for 15 minutes following injection per protocol. Pt stayed for 15 mins following administration of Evenity. Pt denied any shortness of breath, difficulty breathing or any adverse reaction. I advised pt that she will remain on vitamin D and calcium while on this medication and to let her dentist know she is on this medication. I advised her to call the office if she experiences any adverse reactions or side effects such as site reactions or joint pains. Pt tolerated injection well. Pt scheduled in 4 weeks for next appt. No further questions at this time. Assessment & Plan Assessment & Plan Orders: Orders AMB Romosozumab Injection Patient Supplied Today M81.0 - Age-related osteoporosis without current pathological fracture Coding
--- OUTSIDE RECORDS SUMMARY | 2025-10-06 20:49 | XMS_ITS | Patient Health Record ---
Author Organization [facility] Address [address] [address] Care Team Providers Care Insole Filler Name Role Phone Byron Grigsby Primary Care Provider Nella Quezada MD, Gulshan Unavailable [phone] Hanh KHAN, Cbferalfa Unavailable Unavailanh e Allergies [...] Problem History of polyp of colon (situation) (676650381) Personal history of colonic polyps (Z86.010) Active confirmed Problem Change in bowel habit (86235220) Change in bowel habits (R19.4) Active confirmed Problem Liver function tests abnormal (796389175) Abnormal liver function tests (R79.89) Active confirmed LFTS in ER 04/30 were normal. including AST/ALT and alk phos. she has a hx of recent abx use for UTI Problem Diarrhea (40488630) Diarrhea (R19.7) Active confirmed Problem Constipation (68453876) Constipation (K59.00) Active confirmed controlled on prn colace Problem Cholelithiasis (367218049) Cholelithiases (K80.20) Active confirmed asymptomatic, suspect lfts were unrelated although transient biliary obstruction is a possibility. however she was asymptomatic at the time lfts were checked. Problem High blood pressure (44398064) High Blood Pressure (I10) 017 Active confirmed Problem Liver enzymes abnormal (037782215) Liver enzymes abnormal (790.5) 019 Active confirmed --APPEND--AL0 01--Liver enzymes abnormal Problem Benign neoplasm of colon (60426354) Polyp-colon (211.3) 019 Active confirmed --APPEND--AL0 01--Polyp-col on Problem Screening for malignant neoplasm of colon (602725088) Screening-colon cancer screening (V76.51) 017 Active confirmed --APPEND--AL0 01--Screening -colon cancer screening Plan Of Treatment Future Test Test Name Order Date Abdominal X-Ray: flat and upright 2022 Insurance Providers Payer Name Payer Address Payer Phone Subscriber Number Group Number Insured Name Patient Relationship to Insured Coverage Start Date Coverage End Date [facility] [address] [address] [place] [address] [id number] Zari Smith Self - patient is the insured Medical (General) History Medical History History ICD Code Problems: brain surgery x 3 Seizures Stoke/TIA gallstones kidney stone Surgical History Surgery Date(Month/Year) Tubal Ligation Gall Bladder removal 04/2023 renal stent colonoscopy 12/14/2015 Hospitalization History Reason Date(Month/Year) Gall Bladder removal 04/2023
--- OUTSIDE RECORDS SUMMARY | 2025-10-06 20:49 | XMS_ITS | Patient Health Record ---
Author Organization [facility] Address [address] [place] [address] Care Team Providers Care Employment And Claims Aide Name Role Phone Migration, Provider Unavailable Unavailable Reason For Referral No Information Encounters Encounter Location Date Provider Diagnosis Migrated_Facility 0 0 05/07/2025 Provider Migration Migrated_Facility 0 0 05/08/2025 Provider Migration Plan Of Treatment No Information
== END 2025-10-06 14:26 | disposition home or self-care (01) ==
LOC: HO.ENCR 13:37
PROVIDERS: Visit Provider Internal Medicine Endocrinology, Diabetes & Metabolism
DX: M81.0 Age-related osteoporosis without current pathological fracture (principal)

== ENCOUNTER → 2025-10-06 13:36 | Outpatient (BNVA) | payer MEDICARE, MEDICAID, SELFPAY | PROVIDERS: Visit Provider Internal Medicine Endocrinology, Diabetes & Metabolism | DX: M81.0 Age-related osteoporosis without current pathological fracture (principal) | CPT/HCPCS: 96372; J3111 ==

== ENCOUNTER 2025-10-17 10:05 | Outpatient (REF) | payer MEDICARE, MEDICAID, SELFPAY ==
--- NOTE | ~2025-10-17 | XR_ITS ---
EXAMINATION: XR CERVICAL SPINE CLINICAL INFORMATION: M54.2 - Cervicalgia COMPARISON: None available. TECHNIQUE: 4 views of the cervical spine were obtained. FINDINGS: There is mild reversal of the normal cervical lordosis. No fractures are identified. There is no prevertebral soft tissue swelling. C2-C3: There is facet joint space narrowing and small posterior osteophytes C3-C4: There is mild to moderate disc space narrowing and posterior endplate osteophyte. There are facet osteophytes C4-C5: There is minimal grade 1 anterolisthesis and posterior endplate osteophytes with mild disc space narrowing and facet osteophytes. C5-C6: There is moderate disc space narrowing with endplate sclerosis and osteophytes. There is mild facet joint space narrowing C6-7: There is moderate disc space narrowing with degenerative endplate irregularity and osteophytes. There is facet sclerosis. C7-T1: Partially obscured but grossly unremarkable. XR/XR cervical spine 4V IMPRESSION: There is mild reversal of cervical lordosis. This can be related to degenerative changes, positioning, muscle spasm, or posterior soft tissue injury. Multilevel degenerative changes are most advanced at C5-6. Electronically signed by: Jamarcus Rasmussen MD 10/17/2025 03:11 PM EST
[2025-10-17 11:59] LABS: MANUAL DIFF FLAG NO
[2025-10-17 12:26] LABS: Hematocrit 43.5 % (37.0-47.0); Hemoglobin 13.9 g/dl (12.0-16.0); Imm Gran Abs Auto 0.01 X10*3/uL (0.00-0.03); Imm Gran Pct Auto 0.2 % (0.0-0.4); Lymphocytes Absolute Auto 2.0 X10*3/uL (1.2-4.9); Mean Corpuscular HGB Conc 32.0 g/dl (31.0-35.0); Mean Corpuscular Hemoglobin 29.8 pg (27.0-33.0); Mean Corpuscular Volume 93.3 fL (80.0-98.0); NRBC Abs Auto 0.000 X10*3/uL (0.0-0.012); NRBC Pct Auto 0.0 /100WBC (0.0-0.2); Platelet Count 166 X10*3/uL (160-400); Red Blood Count 4.66 X10*6/uL (4.20-5.50); White Blood Count 5.1 X10*3/uL (4.8-10.8)
[2025-10-17 13:11] LABS: Appearance Urine Clear; Glucose Urine UA Negative (Negative); PH 6.0 (5.0-9.0); Specific Gravity - Urine 1.020 (1.005-1.025)
[2025-10-17 13:29] LABS: Alanine Aminotransferase 14 U/L (0-31); Albumin Level 4.4 g/dL (3.5-5.0); Alkaline Phosphatase 170 U/L (39-117); Anion Gap 9 (12-20); Aspartate Amino Transferase 23 U/L (5-31); Blood Urea Nitrogen 14 mg/dL (9-16); Calcium 9.1 mg/dL (8.4-10.2); Carbon Dioxide 29 mmol/L (22-29); Chloride 111 mmol/L (96-108); Cholesterol 145 mg/dL (<200); Estimated Glomerular Filt Rate > 60; HDL Cholesterol 51 mg/dL (>40); Potassium 4.0 mmol/L (3.3-5.1); Sodium 145 mmol/L (135-145); Total Protein 6.4 g/dL (6.5-8.0); Triglycerides 89 mg/dL (<150)
[2025-10-17 14:38] LABS: Folate 9.8 ng/mL (> or = 4.0); Vitamin B12 210 pg/mL (200-900)
== END 2025-10-17 10:06 | disposition home or self-care (01) ==
LOC: HO.LAB 10:05
DX: Z00.00 Encounter for general adult medical examination without abnormal findings (principal); M81.0 Age-related osteoporosis without current pathological fracture; M54.2 Cervicalgia; G40.909 Epilepsy, unspecified, not intractable, without status epilepticus; F41.9 Anxiety disorder, unspecified; I10 Essential (primary) hypertension; K52.9 Noninfective gastroenteritis and colitis, unspecified; Z13.220 Encounter for screening for lipoid disorders; Z13.21 Encounter for screening for nutritional disorder; Z13.29 Encounter for screening for other suspected endocrine disorder; Z13.0 Encounter for screening for diseases of the blood and blood-forming organs and certain disorders involving the immune mechanism
CPT/HCPCS: 36415; 72050; 80053; 80061; 81003; 82306; 82607; 82746; 84443; 85025; 96127; 99397

== ENCOUNTER 2025-10-17 10:05 | Outpatient (AMB) | payer MEDICARE, SELFPAY ==
--- OUTSIDE RECORDS SUMMARY | 2025-05-07 04:00 | XMS_ITS ---
Author Organization [facility] Address [address] [place] [address] Care Team Providers Care Rn Acute Name Role Phone Migration, Provider Unavailable Unavailable REASON FOR VISIT EMR-Grant Encounters Encounter Location Date Provider Diagnosis Migrated_Facility 0 0 05/07/2025 Provider Migration Plan Of Treatment No Information Progress Notes * Zari KING ADOB: (69 yo F)Acc No.[id number]:05/07/2025 Patient: Sindi Zari LEIGH :1955 A ge:69 Y S ex:Female Address:[address] [place] [id number] Subjective: * Chief Complaints: * E MR-Grant * * Date:
--- OUTSIDE RECORDS SUMMARY | 2025-05-08 04:00 | XMS_ITS ---
Author Organization [facility] Address [address] [place] [address] Care Team Providers Care Corrosion Control Fitter Name Role Phone Migration, Provider Unavailable Unavailable REASON FOR VISIT EMR-[facility] Encounters Encounter Location Date Provider Diagnosis Migrated_Facility 0 0 05/08/2025 Provider Migration Plan Of Treatment No Information Progress Notes * Zari KING ADOB: (69 yo F)Acc No.[id number]:05/08/2025 Patient: Sindi Zari LEIGH :1955 A ge:69 Y S ex:Female Address:[address] [place] [id number] Subjective: * Chief Complaints: * E MR-Grant * * Date:
[2025-10-17 10:28] VITALS: BP 110/66; PULSE 66; RESP 18; O2SAT 97; BMI 26.3
--- NOTE | 2025-10-17 10:28 | A.OFFPC_ITS ---
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 Required: No Accompanied by: Self / Same As Patient Allergies Iodinated Contrast Media Allergy (Mild, Verified 10/17/25 10:58) Shakiness nitrofurantoin (From Macrodantin) Allergy (Mild, Verified 10/17/25 10:58) Nausea and Vomiting sulfa Allergy (Mild, Uncoded 10/17/25 10:58) Hives Medication List - Last Reconciled 10/17/25 by Isabella Collazo PA-C acetaminophen (Tylenol Extra Strength) 500 mg PO Q6H PRN amlodipine 5 mg PO DAILY calcium carbonate-vitamin D3 600 mg-12.5 mcg (500 unit) (Calcium with Vit D3) caps PO cholestyramine-aspartame 4 gram (Cholestyramine Light) 4 grams PO QIDACHS clotrimazole 1% 1 appl topical BID levetiracetam 500 mg PO BID lisinopril 20 mg PO DAILY nystatin 1 appl topical DAILY pen needle, diabetic (Comfort EZ Pen Finley) As directed to inject teriparatide daily romosozumab-aqqg (Evenity) 210 mg (2.34 mL) subcut QMONTH Tobacco use date assessed: 10/17/25 Fall risk assessment: No Falls in past year Last assessed Fall Risk: 10/17/25 Dental Screening Dental Screen Date: 10/17/25 Did you have a dental visit in the last 12 months?: Yes Did you have a dental problem in the last 6 months where you did not have access to dental care?: No Was dental information given to patient?: Patient has dentist HPI PE- see comments HPI Details 69-year-old female with past medical his tory of seizure disorder, hypertension, anxiety last seen 12/2024 coming in for annual exam. In review of the notes, patient was seen by endo 08/2025 teraparatide was d/c and started on Evenity.? Presenting for management of chronic conditions, primarily her persistent neck pain. The patient reports chronic neck pain that has persisted for at least a year without improvement. The pain originates at the base of her head and makes it difficult to turn her head and sleep at night. A previous referral to physical therapy was made, but the patient does not believe she was ever contacted and has not had any specific treatment for this issue. The patient has had chronic diarrhea since her gallbladder was removed, with beef being a known trigger. She is on cholestyramine for bile acid replacement. She reports two recent episodes of fecal incontinence without any preceding sensation or urge, which occurred last month. Her last colonoscopy was in May 2022 while living in [place]. The patient sees a neurologist for a seizure disorder and is prescribed Keppra. Her last seizure was over a year ago. She is due for a follow-up visit, as she only saw the neurologist once, who had recommended a 6-month follow-up that was never scheduled. 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 1. Little interest or pleasure in doing things: not at all 2. Feeling down, depressed, or hopeless: not at all 3. Trouble falling or staying asleep, or sleeping too much: not at all 4. Feeling tired or having little energy: not at all 5. Poor appetite or overeating: not at all 6. Feeling bad about yourself - or that you are a failure or have let yourself or your family down: not at all 7. Trouble concentrating on things, such as reading the newspaper or watching television: not at all 8. Moving or speaking so slowly that other people could have noticed. Or the opposite - being so fidgety or restless that you have been moving around a lot more than usual: not at all 9. Thoughts that you would be better off or of hurting yourself in some way: not at all Total score: 0 Depression Screening Interpretation: Negative Depression Screening Done: Yes Source: Developed by Drs. Jose Lechuga, Alicia Moncada, Jorge Crawford and colleagues, with an educational elda from [employer]. Thrive Questionnaire Date Thrive assessed: 10/17/25 I am a: Patient What is your living situation today?: I have a steady place to live Within the past 12 months, did the food you bought not last and you didn't have the money to get more?: Never true Within the past 12 months, did you worry whether your food would run out before you got money to buy more?: Never true THRIVE Score: 0 ISRAEL-7 AMB Questionnaire ISRAEL-7 Date ISRAEL - 7 assessed: 01/14/25 Source: Developed by Drs. Jose Lechuga, Alicia Moncada, Jorge Crawford and colleagues, with an educational elda from [employer]. Review of Systems Const Denies body aches, Denies fatigue, Denies fever(s), Denies frequent falls, Denies headache(s) and Denies weakness Eyes Reports no additional complaints and Denies change in vision ENT Denies dysphagia, Denies dizziness, Denies facial pain, Denies headache(s), Denies nasal congestion and Denies odynophagia Card Denies chest pain, Denies syncope, Denies irregular heart rhythm, Denies leg edema, Denies lightheadedness and Denies dyspnea Resp Denies cough and Denies dyspnea GI Denies abdominal pain, Denies constipation, Denies dysphagia, Denies dyspepsia, Reports diarrhea, Denies nausea, Denies odynophagia and Denies vomiting Denies urinary frequency, Denies dysuria, Denies urinary hesitancy and Denies urinary urgency Musc Denies back pain and Denies myalgias Skin/Breast Reports system reviewed and no additional complaints, except as documented Neuro Denies dizziness, Denies syncope, Denies frequent falls, Denies headache(s) and Denies weakness Psych Reports no additional complaints Endo Denies fatigue Physical exam (Primary Care) Vital Signs: Last Vital Signs Pulse 66 10/17/25 10:28 Resp 18 10/17/25 10:28 BP 110/66 10/17/25 10:28 Pulse Ox 97 10/17/25 10:28 Oxygen Delivery Method Room Air 10/17/25 10:28 BMI result Body Mass Index 26.3 Tobacco/Smoking Status: Tobacco use Status Tobacco use date assessed 10/17/25 10/17/25 10:31 Patient Tobacco Use Status Never used Tobacco 10/17/25 10:31 e-Cigarette/Vaping Use Never Used 10/17/25 10:31 PHQ-9: PHQ-9 Score PHQ-9: Total score 0 10/17/25 11:00 Depression Screening Interpretation: Negative Thrive Assessment: Date of Thrive Assessment Date Thrive assessed 10/17/25 10/17/25 10:31 Const General: cooperative, healthy appearing, comfortable and no acute distress Orientation/consciousness: patient oriented x3 HENMT Head: Yes normocephalic Ears: hearing grossly normal bilaterally, external ears normal, TM's normal bilaterally and EAC's normal General nose exam: Normal external nose present Face and sinus: Yes normal facial exam and Yes sinuses nontender Mouth: Normal oral and palatal mucosa present and tongue normal Throat: Yes posterior oropharynx normal Eyes General: appearance normal, both eyes and all related structures Conjunctivae: conjunctivae normal Pupils: Equal, round and reactive pupils present EOM: EOMs intact bilaterally and No Nystagmus present Neck Neck: Yes normal visual inspection, Yes full ROM and Yes no lymphadenopathy Chest Chest palpation & inspection: normal inspection of the chest Resp Effort & Inspection: normal respiratory effort Auscultation: clear to auscultation bilaterally, no crackles, no rales, no rhonchi, no wheezes and breath sounds present Cardio Rate: regular rate Rhythm: regular rhythm Peripheral pulses: radial pulses present and dorsalis pedis present GI Inspection: Yes normal to inspection and No Abdominal wall edema Palpation (GI): Soft to palpation, not firm and nontender Auscultation: normal bowel sounds Rectal Exam - Female: deferred General: Yes no CVA tenderness Back/Spine/Pelvis Back: no CVA tenderness Skin General skin exam: no rashes or lesions noted Neuro General: patient oriented x3 Cranial nerves: Yes Equal, round and reactive pupils present, Yes Midline tongue present, Yes Ability to bilaterally elevate shoulders present and No Nystagmus present Gait exam (Neuro): Normal gait present Extrem General: Yes normal to inspection, Yes full ROM, No no pedal edema and No edema Psych Speech and movement: Normal speech and movement present Affect: normal affect Insight: Good insight present (Psych) Judgement: Good judgement present (Psych) Coding Level of Care Code Est Pt Prev Care >65y(15668) Diagnoses Annual physical exam Z00.00 Anxiety F41.9 Hypertension I10 Osteoporosis M81.0 Seizure disorder G40.909 Neck pain M54.2 Diarrhea R19.7 Assessment & Plan Assessment & Plan (1) Annual physical exam: Code(s): Z00.00 - Encounter for general adult medical examination without abnormal findings Category: Medical Plan: Patient is up-to-date on all recommended routine screenings and vaccinations for her age. I did order for updated blood work as she is overdue. She has received her flu vaccine from the pharmacy. Healthy diet and regular exercise is encouraged. (2) Anxiety: Code(s): F41.9 - Anxiety disorder, unspecified Category: Medical Plan: Feels her anxiety is well managed at this time. (3) Hypertension: Code(s): I10 - Essential (primary) hypertension Category: Medical Plan: Continue on current blood pressure medication. Avoid salt intake and encourage healthy diet and regular exercise. (4) Osteoporosis: Code(s): M81.0 - Age-related osteoporosis without current pathological fracture Category: Medical Plan: The patient has started treatment with Evenity after discontinuing teriparatide due to adverse effects of somnolence. She will continue monthly Evenity injections for one year, after which a bone density scan will be done to assess efficacy. (5) Seizure disorder: Code(s): G40.909 - Epilepsy, unspecified, not intractable, without status epilepticus Category: Medical Plan: The patient's seizure disorder is reportedly stable, with her last seizure occurring over a year ago. She is overdue for follow-up with her neurologist and needs a refill of Keppra. The patient was advised to contact her neurologist's office to schedule an appointment. (6) Neck pain: Code(s): M54.2 - Cervicalgia Category: Medical Plan: The patient reports chronic neck pain present for over a year, originating at the base of the skull, which has not improved and affects sleep. A cervical spine X-ray will be ordered to begin the evaluation, as this is a prerequisite for a potential MRI per insurance requirements. Further management will be determined based on the X-ray results and may include physical therapy, pain management, or a referral to a back specialist. It looks as though in the past we had recommended physical therapy which was not completed (7) Diarrhea: Code(s): R19.7 - Diarrhea, unspecified Category: Medical Plan: The patient reports chronic diarrhea since her cholecystectomy, which is partially managed with cholestyramine. She has had recent episodes of fecal incontinence without any preceding sensation, which is a new and concerning symptom. A referral will be placed to Gastroenterology for further evaluation. Refills have been provided for her cholestyramine. Plan This note was constructed using voice recognition software. 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 Total time spent caring for the patient today was thirty minutes. This includes time spent before the visit reviewing the chart, time spent during the visit, and time spent after the visit and documentation. Patient was informed and verbally consented to the use of an ambient scribe for clinic note documentation during this visit. Orders: Orders TSH reflex Free T4 Today Z13.29 - Encounter for screening for other suspected endocrine disorder Vitamin D 25-OH Total Today Z13.21 - Encounter for screening for nutritional disorder Comprehensive Met. Panel Today M81.0 - Age-related osteoporosis without current pathological fracture, Z00.00 - Encounter for general adult medical examination without abnormal findings Complete Blood Count Auto Diff Today M81.0 - Age-related osteoporosis without current pathological fracture, Z13.0 - Encounter for screening for diseases of the blood and blood-forming organs and certain disorders involving the immune mechanism Lipid Panel Today Z13.220 - Encounter for screening for lipoid disorders UA CC w/rflx Micro + Cult Today Z13.9 - Encounter for screening, unspecified Vitamin B12 and Folate Today Z13.21 - Encounter for screening for nutritional disorder Referrals Gastroenterology Referral R15.9 - Full incontinence of feces, R19.7 - Diarrhea, unspecified Medications: Changed From cholestyramine-aspartame 4 gram (Cholestyramine Light) no meds 1 hr before/4-6 hr after dose 4 grams PO QIDACHS 239.4 grams 1RF To cholestyramine-aspartame 4 gram no meds 1 hr before/4-6 hr after dose 4 ea PO QIDACHS 239.4 grams 1RF Refilled lisinopril 20 mg PO DAILY 90 tabs 2RF I10 - Essential (primary) hypertension
--- OUTSIDE RECORDS SUMMARY | 2025-10-17 12:10 | XMS_ITS | Patient Health Record ---
Author Organization [facility] Address [address] [address] Care Team Providers Care Global Lead Name Role Phone Byron Grigsby Primary Care Provider Nella Quezada MD, Gulshan Unavailable [phone] Hanh KHAN, Cbferalfa Unavailable Unavailanh e Allergies [...] Problem History of polyp of colon (situation) (848473144) Personal history of colonic polyps (Z86.010) Active confirmed Problem Change in bowel habit (20248067) Change in bowel habits (R19.4) Active confirmed Problem Liver function tests abnormal (706412123) Abnormal liver function tests (R79.89) Active confirmed LFTS in ER 04/30 were normal. including AST/ALT and alk phos. she has a hx of recent abx use for UTI Problem Diarrhea (92679062) Diarrhea (R19.7) Active confirmed Problem Constipation (23552430) Constipation (K59.00) Active confirmed controlled on prn colace Problem Cholelithiasis (162236119) Cholelithiases (K80.20) Active confirmed asymptomatic, suspect lfts were unrelated although transient biliary obstruction is a possibility. however she was asymptomatic at the time lfts were checked. Problem High blood pressure (62336258) High Blood Pressure (I10) 017 Active confirmed Problem Liver enzymes abnormal (293549528) Liver enzymes abnormal (790.5) 019 Active confirmed --APPEND--AL0 01--Liver enzymes abnormal Problem Benign neoplasm of colon (40511702) Polyp-colon (211.3) 019 Active confirmed --APPEND--AL0 01--Polyp-col on Problem Screening for malignant neoplasm of colon (252581928) Screening-colon cancer screening (V76.51) 017 Active confirmed --APPEND--AL0 01--Screening -colon cancer screening Plan Of Treatment Future Test Test Name Order Date Abdominal X-Ray: flat and upright 2022 Insurance Providers Payer Name Payer Address Payer Phone Subscriber Number Group Number Insured Name Patient Relationship to Insured Coverage Start Date Coverage End Date [facility] [address] [address] [place] [address] [id number] Zari Smith Self - patient is the insured Medical (General) History Medical History History ICD Code Problems: brain surgery x 3 Seizures Stoke/TIA gallstones kidney stone Surgical History Surgery Date(Month/Year) Tubal Ligation Gall Bladder removal 04/2023 renal stent colonoscopy 12/14/2015 Hospitalization History Reason Date(Month/Year) Gall Bladder removal 04/2023
--- OUTSIDE RECORDS SUMMARY | 2025-10-17 12:11 | XMS_ITS | Patient Health Record ---
Author Organization [facility] Address [address] [place] [address] Care Team Providers Care Cloth Hand Name Role Phone Migration, Provider Unavailable Unavailable Reason For Referral No Information Encounters Encounter Location Date Provider Diagnosis Migrated_Facility 0 0 05/07/2025 Provider Migration Migrated_Facility 0 0 05/08/2025 Provider Migration Plan Of Treatment No Information
== END 2025-10-17 11:27 | disposition home or self-care (01) ==
LOC: HO.HMCH 10:06
DX: Z00.00 Encounter for general adult medical examination without abnormal findings (principal); G40.909 Epilepsy, unspecified, not intractable, without status epilepticus; F41.9 Anxiety disorder, unspecified; I10 Essential (primary) hypertension; M81.0 Age-related osteoporosis without current pathological fracture; M54.2 Cervicalgia; R19.7 Diarrhea, unspecified

== ENCOUNTER → 2025-10-17 12:03 | Outpatient (BNV) | payer MEDICARE, MEDICAID, SELFPAY | PROVIDERS: Visit Provider Radiology Diagnostic Radiology | DX: M50.30 Other cervical disc degeneration, unspecified cervical region (principal) | CPT/HCPCS: 72050 ==